=== PATIENT | female | born 1930 | race Caucasian/White ===

== ENCOUNTER 2016-04-18 11:32 | Emergency (ER) | payer BC ==
[~2016-04-18] VITALS: Ht 162.6 cm; Wt 61.8 kg
[~2016-04-18 11:32] MED LIST: BIOTIN; CLX20 PO; DRV100 PO; LRT5 PO; METO-157 PO; MULT-506 PO; TELM40TA11 PO; TEMA15CA4 PO
[2016-04-18 11:36] VITALS: TEMP 36.6; Ht 162.6 cm; Wt 61.8 kg
[2016-04-18] MEDS ORDERED: TELM40TA11 PO (12:00)
[2016-04-18] MEDS ORDERED: MECLIZINE HCL 25 MG TAB PO STA (12:10)
[2016-04-18] MEDS ORDERED: SODIUM CHLORIDE 0.9% 1000ML 1,000 ML IV STA (12:10)
[2016-04-18] MEDS ORDERED: SODIUM CHLORIDE 0.9% 1000ML 1,000 ML IV ONE (12:10)
--- NOTE | 2016-04-18 12:23 | EMERGENCY ROOM VISIT NOTE ---
History Report prepared by Bertha: Chencho Verma Under the Supervision of: Dr. Jesus Harrison M.D. First contact with patient: 12:01 Chief Complaint: ILLNESS Stated Complaint: SICK X 2 DAYS, DIZZINESS THIS AM, NAUSEA History of Present Illness The patient is an 86 year old female who presents to the Emergency Room with complaints of recurrent dizziness since yesterday morning. The patient woke up yesterday and felt as though the room was spinning. The dizziness was worse when she stood up. Today the patient feels fine until she moves which causes the dizziness to increase. The patient has also felt nauseated since yesterday. She vomited when she tried to drink orange juice. The patient also also been unable to take her Metformin secondary to vomiting. The patient did not check her BSG. The patient has experienced this dizziness before with vertigo. She notes that she has some right ear discomfort. She also has a small headache. She had not had any recent falls. The patient also expresses concern that both of her arms go numb at night which has been happening for approximately 4 months. The patient denies fevers, coughing, chest pain, shortness of breath, abdominal pain, black or bloody stools, diarrhea, new urinary symptoms, or trouble speaking or swallowing. The patient has a history of diabetes, neuropathy, and hypertension. She denies any history of stroke or heart disease. Source of History: patient, family Onset: yesterday morning Position: other (global) Quality: other (dizziness) Timing: other (recurrent) Modifying Factors (Worsening): movement Associated Symptoms: + headache, + nausea, + numbness, + vomiting, No SOB, No abdominal pain, No chest pain, No cough, No diarrhea, No fevers, No hematochezia, No melena, No urinary symptoms Review of Systems See HPI for pertinent positives & negatives. A total of 10 systems reviewed and were otherwise negative. Past Medical & Surgical Medical Problems: (1) Colon cancer (2) Diabetes (3) HTN (hypertension) (4) Neuropathy Surgical Problems: (1) History of hip replacement Old medical records were reviewed. Nurse's notes were reviewed and I agree with. Denies history of cardiac disease , CVA or pulmonary disease She does have diabetes Family History Diabetes mellitus FHx: cancer Hypertension Social History Smoking Status: Never Smoker Alcohol Use: none Drug Use: none Housing Status: lives alone Occupation Status: retired Current/Historical Medications Scheduled Cephalexin Monohydrate (Keflex), 500 MG PO TID Metformin Hcl Er (Glucophage Er), 500 MG PO DAILY Ondasetron Odt (Zofran Odt), 4 MG SL Q6H Sitagliptin (Januvia), 100 MG PO DAILY Telmisartan (Micardis), 20 MG PO DAILY Scheduled PRN Meclizine Hcl (Meclizine Hcl), 1 TAB PO TID PRN for Dizziness or Vertigo Temazepam (Restoril), 15 MG PO HS PRN for Sleep Tramadol (Ultram), 100 MG PO TID PRN for Pain Allergies Coded Allergies: Morphine (Unverified Allergy, Mild, 04/18/16) Physical Exam Vital Signs Date Time Temp Pulse Resp B/P Pulse Ox O2 Delivery O2 Flow Rate FiO2 04/18/16 14:51 80 20 140/72 99 04/18/16 13:25 59 20 144/70 94 Room Air 04/18/16 11:36 36.6 70 18 161/77 97 Room Air Physical Exam General: Non ill-appearing older female in no acute distress. Speaking and swallowing without difficulty. GCS 15. HEENT: Normal cephalic atraumatic. Pupils are equal round and reactive to light. Extraocular movements are intact. Oropharynx is pink with moist mucous membranes. No swelling of the mouth lips or tongue. Neck: Supple with a midline trachea. No meningeal signs or stiffness, no JVD or bruits. No Stridor. Chest: Clear to auscultation bilaterally. No wheezes or rhonchi. No increased work of breathing. Heart: regular rate and rhythm. Abdomen: Soft nontender, nondistended without rebound guarding or rigidity. Extremities: No cyanosis clubbing or edema. No calf tenderness or assymetry Spine/Back. Non tender to palpation. No CVA tenderness Skin: Good turgor without rashes. Neurologic exam: Cranial nerves two through 12 are intact. Motor and sensation are intact and symmetrical throughout. No pronator drift, finger nose intact, no tremor. Medical Decision & Procedures ER Provider Diagnostic Interpretation: Radiology results as stated below per my review and radiologist interpretation: SINGLE VIEW CHEST CLINICAL HISTORY: Atypical chest pain. FINDINGS: An AP, portable, upright chest radiograph is compared to study dated 12/16/2007. The examination is degraded by portable technique and patient rotation. The heart is enlarged and there is atherosclerotic calcification of the thoracic aorta. The pulmonary vasculature is noncongested. Chronic interstitial thickening is similar to previous. Linear atelectasis versus scarring is seen in the left lower lung. No airspace consolidation or large pleural effusion is identified. No pneumothorax is seen. The skeletal structures are osteopenic. The bony thorax is grossly intact. IMPRESSION: Mild cardiac enlargement with no acute cardiopulmonary abnormality. Electronically signed by: Lalo Loredo M.D. 04/18/2016 1:31 PM Dictated Date/Time: 04/18/2016 1:[address] SCAN OF THE BRAIN WITHOUT IV CONTRAST CLINICAL HISTORY: Dizziness. COMPARISON STUDY: CT of the brain dated 04/04/2007. TECHNIQUE: Unenhanced axial CT scan of the brain is performed from the vertex to the skull base. CT DOSE: 537.48 mGy.cm FINDINGS: Brain parenchyma: There are age-related involutional changes noting moderate confluent subcortical and periventricular microangiopathic change. There is no hemorrhage, mass effect, or evidence of acute territorial ischemia by CT criteria. Walsh-white matter is preserved. No extra-axial fluid collection is seen. Ventricles, sulci, cisterns: Prominent secondary to involutional change. Intracranial vasculature: There is atherosclerotic calcification of the cavernous carotid and vertebral arteries. Calvarium: Unremarkable. Sinuses and mastoids: The visualized paranasal sinuses are clear. The mastoid air cells are well pneumatized. Orbits: The bony orbits are grossly intact. There are bilateral ocular lens implants. IMPRESSION: Senescent changes as above with no hemorrhage, mass effect, or evidence of acute territorial ischemia by CT criteria. Electronically signed by: Lalo Loredo M.D. 04/18/2016 1:05 PM Dictated Date/Time: 04/18/2016 1:03 PM Laboratory Results 04/18/16 12:30 Red Blood Count 4.21, Mean Corpuscular Volume 95.5, Mean Corpuscular Hemoglobin 33.3, Mean Corpuscular Hemoglobin Concent 34.8, Mean Platelet Volume 10.3, Neutrophils (%) (Auto) 70.0, Lymphocytes (%) (Auto) 21.4, Monocytes (%) (Auto) 6.3, Eosinophils (%) (Auto) 1.3, Basophils (%) (Auto) 0.8, Neutrophils # (Auto) 4.47, Lymphocytes # (Auto) 1.36, Monocytes # (Auto) 0.40, Eosinophils # (Auto) 0.08, Basophils # (Auto) 0.05 04/18/16 12:30 Test 04/18/16 12:30 04/18/16 12:45 White Blood Count 6.37 K/uL (4.8-10.8) Red Blood Count 4.21 M/uL (4.2-5.4) Hemoglobin 14.0 g/dL (12.0-16.0) Hematocrit 40.2 % (37-47) Mean Corpuscular Volume 95.5 fL (80-100) Mean Corpuscular Hemoglobin 33.3 pg (25-34) Mean Corpuscular Hemoglobin Concent 34.8 g/dl (32-36) Platelet Count 206 K/uL (130-400) Mean Platelet Volume 10.3 fL (7.4-10.4) Neutrophils (%) (Auto) 70.0 % Lymphocytes (%) (Auto) 21.4 % Monocytes (%) (Auto) 6.3 % Eosinophils (%) (Auto) 1.3 % Basophils (%) (Auto) 0.8 % Neutrophils # (Auto) 4.47 K/uL (1.4-6.5) Lymphocytes # (Auto) 1.36 K/uL (1.2-3.4) Monocytes # (Auto) 0.40 K/uL (0.11-0.59) Eosinophils # (Auto) 0.08 K/uL (0-0.5) Basophils # (Auto) 0.05 K/uL (0-0.2) RDW Standard Deviation 43.6 fL (36.4-46.3) RDW Coefficient of Variation 12.6 % (11.5-14.5) Immature Granulocyte % (Auto) 0.2 % Immature Granulocyte # (Auto) 0.01 K/uL (0.00-0.02) Urine Color YELLOW Urine Appearance CLOUDY (CLEAR) Urine pH 5.0 (4.5-7.5) Urine Specific [place] 1.012 (1.000-1.030) Urine Protein NEG (NEG) Urine Glucose (UA) NEG (NEG) Urine Ketones NEG (NEG) Urine Occult Blood 1+ (NEG) Urine Nitrite POS (NEG) Urine Bilirubin NEG (NEG) Urine Urobilinogen NEG (NEG) Urine Leukocyte Esterase MODERATE (NEG) Urine WBC (Auto) >30 /hpf (0-5) Urine RBC (Auto) 0-4 /hpf (0-4) Urine Hyaline Casts (Auto) 10-30 /lpf (0-5) Urine Epithelial Cells (Auto) 5-10 /lpf (0-5) Urine Bacteria (Auto) 4+ (NEG) Anion Gap 12.0 mmol/L (3-11) Est Creatinine Clear Calc Drug Dose 39.1 ml/min Estimated GFR () 69.9 Estimated GFR (Non- 60.3 BUN/Creatinine Ratio 15.7 (10-20) Calcium Level 9.3 mg/dl (8.5-10.1) Total Bilirubin 0.9 mg/dl (0.2-1) Direct Bilirubin 0.2 mg/dl (0-0.2) Aspartate Amino Transf (AST/SGOT) 17 U/L (15-37) Alanine Aminotransferase (ALT/SGPT) 16 U/L (12-78) Alkaline Phosphatase 61 U/L (45-117) Total Creatine Kinase 124 U/L (26-192) Creatine Kinase MB 2.5 ng/ml (0.5-3.6) Creatine Kinase MB Ratio 2.0 (0-3.0) Total Protein 7.3 gm/dl (6.4-8.2) Albumin 3.8 gm/dl (3.4-5.0) Lipase 129 U/L (73-393) Bedside Troponin I 0.010 ng/ml (0-0.045) Laboratory studies as stated above per my review. Medications Administered Medications (Trade) Dose Ordered Sig/Saima Route Start Time Stop Time Status Last Admin Dose Admin Sodium Chloride (Nss 1000ml) 1,000 ml @ 999 mls/hr Q1H1M STAT IV 04/18/16 12:10 04/18/16 13:10 DC 04/18/16 12:10 999 MLS/HR Meclizine HCl (Antivert Tab) 25 mg NOW STAT PO 04/18/16 12:10 04/18/16 12:12 DC 04/18/16 12:49 25 MG Ondansetron HCl (Zofran Inj) 4 mg STK-MED ONCE .ROUTE 04/18/16 14:05 04/18/16 14:08 DC 04/18/16 14:05 4 MG Cephalexin Monohydrate (Keflex 500MG Home Pack) 1 homepack NOW ONCE PO 04/18/16 14:30 04/18/16 14:31 DC 04/18/16 14:41 1 HOMEPACK ECG Indication: other (dizziness) Rate (beats per minute): 82 Rhythm: normal sinus Findings: no acute ischemic change, other (LVH, repolarization abnormality) Comparison ECG Date: 2007 Change: no significant change ED Course 1202: Past medical records reviewed. The patient was evaluated in room B11b, and a complete history and physical examination were performed. 1210: Antivert 25 mg PO, NSS 1000 ml @ 150 mls/hr, NSS 1000 ml @ 999 mls/hr. 1315: Checked on the patient. She was resting comfortable and is feeling better. 1405: The patient is still feeling better. She will perform an ambulatory trial. 1415: Reassessed the patient. Discussed the discharge instructions with her. She verbalized understanding and agreement. The patient is ready for discharge. 1430: Keflex 500 mg PO home pack. Medical Decision Differential diagnosis includes vertigo, CVA, dehydration, arrhythmia, anemia, infection, electrolyte or metabolic abnormality. This patient comes in as described above. She has vertigo type symptoms they are positional. She has a normal neurologic exam and has a normal finger to nose. IV access was established and she was hydrated with IV normal saline she was given PO meclizine. EKG and multiple blood testing was obtained. She was reassessed frequently. She also had a CAT scan of her head. CAT scan of her head was normal as was her normal neurologic exam. She remained stable. She did receive IV hydration and meclizine and was feeling a lot better. She said her dizziness was better and she was given Zofran 4 mg IV for nausea. She looks well. EKG and cardiac biomarkers do not suggest acute coronary syndrome or arrhythmia. She has no acute electrolyte or metabolic abnormalities. She is not signifantly anemic. She has nothing to suggest sepsis. Her urinalysis does suggest a UTI with a backup culture pending. She was started on Keflex I gave her home pack as well as a prescription. For dizziness, she can use meclizine. And was warned that it could make her drowsy and be careful when getting up and down. For nauseas, she can use Zofran. Return if: worsening of symptoms, fever, numbness or weakness, any new problems or concerns. Follow-up with her doctor in 1-2 days for recheck. Impression Primary Impression: Dizziness Additional Impressions: Nausea UTI (urinary tract infection) Scribe Attestation The scribe's documentation has been prepared under my direction and personally reviewed by me in its entirety. I confirm that the note above accurately reflects all work, treatment, procedures, and medical decision making performed by me. Departure Information Dispostion Home / Self-Care Prescriptions Ondasetron Odt (ZOFRAN ODT) 4 Mg Tab 4 MG SL Q6H for Nausea, #10 TAB Prov: Jesus Harrison M.D. 04/18/16 Meclizine Hcl (MECLIZINE HCL) 25 Mg Tab 1 TAB PO TID Y for Dizziness or Vertigo for 10 Days, #10 TAB Prov: Jesus Harrison M.D. 04/18/16 Cephalexin Monohydrate (Keflex) 500 Mg Cap 500 MG PO TID, #21 CAP Prov: Jesus Harrison M.D. 04/18/16 Referrals Archie Chu M.D. (PCP) Forms HOME CARE DOCUMENTATION FORM, IMPORTANT VISIT INFORMATION Patient Instructions My [facility] Additional Instructions Rest Drink plenty of fluids Be extremely careful and getting up and down. Use Keflex 500 mg three times a day- antibiotic for 7 days For dizziness, may use meclizine 25 mg every 8 hours. Meclizine may make you drowsy and be careful after taking. May use Zofran 4 mg oral dissolving tablet every 6 hours as needed for nausea or vomiting. Return if: worsening of symptoms, numbness or weakness, chest pain, shortness of breath, fever chills, any new problems concerns. Follow-up with your doctor on Wednesday for recheck Problem Qualifiers
[2016-04-18 12:47] LABS: BASO % 0.8 %; BASO ABS # 0.05 K/uL (0-0.2); COMPLETE YES; EOS % 1.3 %; HEMATOCRIT 40.2 % (37-47); IG% 0.2 %; LYMPH % 21.4 %; LYMPH ABS # 1.36 K/uL (1.2-3.4); MEAN CELL VOLUME 95.5 fL (80-100); MEAN CORPUSCULAR HEMOGLOBIN 33.3 pg (25-34); MEAN CORPUSCULAR HGB CONC 34.8 g/dl (32-36); MEAN PLATELET VOLUME 10.3 fL (7.4-10.4); MONO % 6.3 %; PLATELET COUNT 206 K/uL (130-400); RED BLOOD COUNT 4.21 M/uL (4.2-5.4); WHITE BLOOD COUNT 6.37 K/uL (4.8-10.8)
[2016-04-18 12:52] LABS: URINE APPEARANCE CLOUDY (CLEAR); URINE BILIRUBIN NEG (NEG); URINE COLOR YELLOW; URINE NITRITE POS (NEG); URINE SPECIFIC GRAVITY 1.012 (1.000-1.030); UROBILINOGEN NEG (NEG)
[2016-04-18 13:00] LABS: MANUAL MICROSCOPIC REQUIRED? NO; REVIEW REQ? NO
--- NOTE | 2016-04-18 13:06 | DIAGNOSTIC IMAGING REPORT ---
CT SCAN OF THE BRAIN WITHOUT IV CONTRAST CLINICAL HISTORY: Dizziness. COMPARISON STUDY: CT of the brain dated 04/04/2007. TECHNIQUE: Unenhanced axial CT scan of the brain is performed from the vertex to the skull base. CT DOSE: 537.48 mGy.cm FINDINGS: Brain parenchyma: There are age-related involutional changes noting moderate confluent subcortical and periventricular microangiopathic change. There is no hemorrhage, mass effect, or evidence of acute territorial ischemia by CT criteria. Walsh-white matter is preserved. No extra-axial fluid collection is seen. Ventricles, sulci, cisterns: Prominent secondary to involutional change. Intracranial vasculature: There is atherosclerotic calcification of the cavernous carotid and vertebral arteries. Calvarium: Unremarkable. Sinuses and mastoids: The visualized paranasal sinuses are clear. The mastoid air cells are well pneumatized. Orbits: The bony orbits are grossly intact. There are bilateral ocular lens implants. IMPRESSION: Senescent changes as above with no hemorrhage, mass effect, or evidence of acute territorial ischemia by CT criteria. Electronically signed by: Lalo Loredo M.D. 04/18/2016 1:05 PM Dictated Date/Time: 04/18/2016 1:03 PM
[2016-04-18 13:10] LABS: BUN/CREATININE RATIO 15.7 (10-20); CALCIUM 9.3 mg/dl (8.5-10.1); CREATININE 0.86 mg/dl (0.60-1.20); POTASSIUM 3.8 mmol/L (3.5-5.1)
--- NOTE | 2016-04-18 13:32 | DIAGNOSTIC IMAGING REPORT ---
SINGLE VIEW CHEST CLINICAL HISTORY: Atypical chest pain. FINDINGS: An AP, portable, upright chest radiograph is compared to study dated 12/16/2007. The examination is degraded by portable technique and patient rotation. The heart is enlarged and there is atherosclerotic calcification of the thoracic aorta. The pulmonary vasculature is noncongested. Chronic interstitial thickening is similar to previous. Linear atelectasis versus scarring is seen in the left lower lung. No airspace consolidation or large pleural effusion is identified. No pneumothorax is seen. The skeletal structures are osteopenic. The bony thorax is grossly intact. IMPRESSION: Mild cardiac enlargement with no acute cardiopulmonary abnormality. Electronically signed by: Lalo Loredo M.D. 04/18/2016 1:31 PM Dictated Date/Time: 04/18/2016 1:29 PM
[2016-04-18] MEDS ORDERED: ONDANSETRON INJ 2 MG/ML 2 ML VIAL ONE (14:05)
[2016-04-18] MEDS ORDERED: CEPHALEXIN 500MG HOME PACK 1 EA BTL PO ONE (14:30)
[2016-04-18] MEDS ORDERED: CEPH500C PO (14:32)
[2016-04-18] MEDS ORDERED: MECL1TAB42 PO (14:32)
[2016-04-18] MEDS ORDERED: ONDA4TAB10 SL (14:32)
[2016-04-18 14:51] VITALS: BP 140/72; PULSE 80; O2SAT 99
--- NOTE | 2016-04-20 10:54 | Pharmacy Progress Note ---
ED Pharmacist Culture FollowUp Date of Service: Apr 20, 2016. Patient was sent home with a prescription for Keflex 500mg TID x 7 days, which should cover the Klebsiella pneumoniae growing from the patient's URINE culture. No action required.
[2016-11-03] MEDS ORDERED: SITA1TAB27 PO (12:00)
[2016-11-03] MEDS ORDERED: TEMA15CA4 PO (12:00)
[2016-11-03] MEDS ORDERED: METF500T5 PO (12:00)
[2016-11-03] MEDS ORDERED: TRAM-10 PO (12:00)
== END 2016-04-18 14:54 | disposition home or self-care (01) ==
LOC: C.EDB 11:34
DX: R42 Dizziness and giddiness (principal); R11.2 Nausea with vomiting, unspecified; N39.0 Urinary tract infection, site not specified; R51 Headache; R20.0 Anesthesia of skin; E11.9 Type 2 diabetes mellitus without complications; I10 Essential (primary) hypertension; Z79.84 Long term (current) use of oral hypoglycemic drugs; Z79.899 Other long term (current) drug therapy; Z88.5 Allergy status to narcotic agent; Z85.038 Personal history of other malignant neoplasm of large intestine; Z82.49 Family history of ischemic heart disease and other diseases of the circulatory system; Z83.3 Family history of diabetes mellitus

== ENCOUNTER → 2016-05-05 | Outpatient (CLI) | payer BC ==
[~2016-05-05] MED LIST changes: +ACET-1256 PO; -BIOTIN; +BISA-16 PO; +CEPH500C PO; +CHOL1000 PO; -CLX20 PO; +CPR250 PO; +DICL1GEL12 TOP; -DRV100 PO; +IMD/2 PO; +LEVO1TAB35 PO; -LRT5 PO; +METF500T5 PO; -METO-157 PO; +ONDA4TAB10 SL; +POLY335019 PO; +SITA1TAB27 PO; +TELM5TAB2 PO; +TRAM-10 PO
[2016-05-05 17:52] LABS: URINE APPEARANCE CLEAR (CLEAR); URINE BILIRUBIN NEG (NEG); URINE COLOR YELLOW; URINE EPITHELIAL CELL AUTO 0-5 /lpf (0-5); URINE NITRITE POS (NEG); URINE PH 5.5 (4.5-7.5); URINE SPECIFIC GRAVITY 1.009 (1.000-1.030); UROBILINOGEN NEG (NEG)
[2016-05-05 18:09] LABS: MANUAL MICROSCOPIC REQUIRED? NO; REVIEW REQ? NO
== END | disposition home or self-care (01) ==
LOC: C.LABBC 14:52
PROVIDERS: ATTEND Internal Medicine Geriatric Medicine
DX: N39.0 Urinary tract infection, site not specified (principal)

== ENCOUNTER → 2016-06-04 | Outpatient (CLI) | payer BC ==
[~2016-06-04] MED LIST changes: +CIPR250T5 PO; -CPR250 PO
[2016-06-04 17:06] LABS: BASO ABS # 0.07 K/uL (0-0.2); COMPLETE YES; EOS % 3.6 %; HEMATOCRIT 40.5 % (37-47); IG% 0.1 %; LYMPH % 32.5 %; LYMPH ABS # 2.19 K/uL (1.2-3.4); MEAN CELL VOLUME 96.2 fL (80-100); MEAN CORPUSCULAR HEMOGLOBIN 32.3 pg (25-34); MEAN CORPUSCULAR HGB CONC 33.6 g/dl (32-36); MEAN PLATELET VOLUME 10.4 fL (7.4-10.4); MONO % 7.7 %; NEUT % 55.1 %; PLATELET COUNT 219 K/uL (130-400); RED BLOOD COUNT 4.21 M/uL (4.2-5.4); WHITE BLOOD COUNT 6.73 K/uL (4.8-10.8)
[2016-06-04 17:09] LABS: URINE APPEARANCE TURBID (CLEAR); URINE BILIRUBIN NEG (NEG); URINE COLOR YELLOW; URINE EPITHELIAL CELL AUTO 20-30 /lpf (0-5); URINE NITRITE NEG (NEG); URINE SPECIFIC GRAVITY 1.016 (1.000-1.030); UROBILINOGEN NEG (NEG)
[2016-06-04 17:10] LABS: MANUAL MICROSCOPIC REQUIRED? NO; REVIEW REQ? NO
[2016-06-04 17:25] LABS: ALT/SGPT 19 U/L (12-78); BLOOD UREA NITROGEN 18 mg/dl (7-18); BUN/CREATININE RATIO 18.4 (10-20); CARBON DIOXIDE 26 mmol/L (21-32); CHLORIDE 103 mmol/L (98-107); CREATININE 0.97 mg/dl (0.60-1.20); GLUCOSE 170 mg/dl (70-99); SODIUM 137 mmol/L (136-145)
[2016-06-04 17:36] LABS: ALB/GLOB RATIO 1.2 (0.9-2); ALKALINE PHOSPHATASE 63 U/L (45-117); AST/SGOT 18 U/L (15-37)
[2016-06-04 18:04] LABS: CALCIUM 9.6 mg/dl (8.5-10.1)
[2016-06-05 06:13] LABS: ESTIMATED AVERAGE GLUCOSE 151 mg/dl; HA1C FLAG Normal (Normal)
--- NOTE | 2016-06-09 13:02 | CODING QUERY MEDICAL NECESSITY ---
SUPPORTING DIAGNOSIS NEEDED A supporting diagnosis is required for the test/procedure performed on this patient in order for us to be reimbursed by the patient's insurance. Please provide a supporting diagnosis for the following test/procedure listed below next to the test name along with your signature. *If there is no additional diagnosis for this patient that would support the following test/procedure please document that below next to the test/procedure. Test(s)/Procedure(s) that require a supporting diagnosis: DOS 06/04 * Hba1c DIAGNOSIS: * TSH DIAGNOSIS: Provider Signature: Date: Thank you Tatiana Vázquez Health Information Management Once completed, please kindly fax back to [phone] For questions please call [phone]
== END | disposition home or self-care (01) ==
LOC: C.LABBC 13:51
PROVIDERS: ATTEND Physician Assistant Medical
DX: N39.0 Urinary tract infection, site not specified (principal); E55.9 Vitamin D deficiency, unspecified; E11.9 Type 2 diabetes mellitus without complications; I10 Essential (primary) hypertension

== ENCOUNTER → 2016-06-25 | Outpatient (CLI) | payer BC | END | disposition home or self-care (01) | LOC: C.LABBC 11:40 | PROVIDERS: ATTEND Physician Assistant Medical | DX: N39.0 Urinary tract infection, site not specified (principal) ==

== ENCOUNTER 2016-08-02 21:47 | Inpatient (IN) | payer BC, OTHER ==
[~2016-08-02] VITALS: Ht 165.1 cm; Wt 63.4 kg
[~2016-08-02 21:47] MED LIST changes: -ACET-1256 PO; -BISA-16 PO; -CHOL1000 PO; -CIPR250T5 PO; -DICL1GEL12 TOP; -IMD/2 PO; -LEVO1TAB35 PO; -METF500T5 PO; -MULT-506 PO; -POLY335019 PO; -SITA1TAB27 PO; -TELM5TAB2 PO; -TEMA15CA4 PO; -TRAM-10 PO
[2016-08-02] MEDS ORDERED: ONDANSETRON INJ 2 MG/ML 2 ML VIAL IV STA (22:01)
[2016-08-02] MEDS ORDERED: SODIUM CHLORIDE 0.9% 500ML 500 ML IV STA (22:03)
[2016-08-02 22:07] LABS: BASO % 0.3 %; BASO ABS # 0.02 K/uL (0-0.2); COMPLETE YES; EOS % 0.1 %; HEMATOCRIT 39.2 % (37-47); IG% 0.1 %; LYMPH % 11.8 %; MEAN CELL VOLUME 93.6 fL (80-100); MEAN CORPUSCULAR HEMOGLOBIN 31.7 pg (25-34); MEAN CORPUSCULAR HGB CONC 33.9 g/dl (32-36); MEAN PLATELET VOLUME 10.2 fL (7.4-10.4); MONO % 3.5 %; NEUT % 84.2 %; PLATELET COUNT 223 K/uL (130-400); RED BLOOD COUNT 4.19 M/uL (4.2-5.4); WHITE BLOOD COUNT 6.79 K/uL (4.8-10.8)
--- NOTE | 2016-08-02 22:12 | EMERGENCY ROOM VISIT NOTE ---
History Report prepared by Bertha: Chencho Verma Under the Supervision of: Dr. Aravind Cruz D.O. First contact with patient: 21:54 Chief Complaint: WEAKNESS Stated Complaint: VOMITING WEAKNESS, LETHARGIC History of Present Illness The patient is an 86 year old female who presents to the Emergency Room with complaints of persistent nausea since this morning. She has been vomiting all day as well. The patient denies abdominal pain, but states that "something does not feel right down there." Her abdomen does not feel distended. The patient called an ambulance because she was feeling nauseous and also a little confused. She lives alone at home. The patient denies headache, chest pain, or shortness of breath. She does not urinary frequency. She denies recent falls and has not hit her head. She has a history of colon cancer, diabetes, and rheumatism. The patient is s/p cholecystectomy. She follows up with Dr. Chu (Family Medicine). Source of History: patient Onset: this morning Position: other (GI) Quality: other (nausea) Timing: other (persistent) Associated Symptoms: + vomiting, No headache, No chest pain, No SOB Review of Systems See HPI for pertinent positives & negatives. A total of 10 systems reviewed and were otherwise negative. Past Medical & Surgical Medical Problems: (1) Colon cancer (2) Diabetes (3) HTN (hypertension) (4) Neuropathy Surgical Problems: (1) History of hip replacement Family History Diabetes mellitus FHx: cancer Hypertension Social History Smoking Status: Never Smoker Alcohol Use: none Drug Use: none Housing Status: lives alone Occupation Status: retired Current/Historical Medications Scheduled Cholecalciferol (Vitamin D3), 1,000 INTER.UNIT PO DAILY Metformin Hcl Er (Glucophage Er), 500 MG PO DAILY Multivitamin (Multivitamin), 1 TAB PO DAILY Sitagliptin (Januvia), 100 MG PO DAILY Telmisartan (Micardis), 20 MG PO DAILY Scheduled PRN Temazepam (Restoril), 15 MG PO HS PRN for Sleep Tramadol (Ultram), 100 MG PO TID PRN for Pain Allergies Coded Allergies: Morphine (Unverified Allergy, Mild, 08/02/16) Physical Exam Vital Signs Date Time Temp Pulse Resp B/P (MAP) Pulse Ox O2 Delivery O2 Flow Rate FiO2 08/02/16 23:10 64 18 148/65 98 Room Air 08/02/16 22:39 65 16 138/74 98 Room Air 08/02/16 22:00 36.7 64 18 169/72 94 Room Air 08/02/16 21:59 68 Physical Exam GENERAL: Patient is awake, somewhat listless appearing, does not appear to be in pain. EYES: The conjunctivae are clear. The pupils are round and reactive. EARS, NOSE, MOUTH AND THROAT: The nose is without any evidence of any deformity. Mucous membranes are dry, tongue is midline NECK: The neck is nontender and supple. RESPIRATORY: Normal respiratory effort is noted there is no evidence of wheezing rhonchi or rales CARDIOVASCULAR: Regular rate and rhythm noted, there was a systolic murmur appreciated. GASTROINTESTINAL: The abdomen is mildly distended but soft, mild diffuse tenderness to palpation noted, no guarding or rigidity. MUSCULOSKELETAL/EXTREMITIES: There is no evidence of gross deformity full range of motion is noted in the hips and shoulders SKIN: Pedal edema bilaterally. NEUROLOGIC: Patient is awake alert and oriented x3 strength is symmetric. Medical Decision & Procedures ER Provider Diagnostic Interpretation: X-ray results as stated below per interpretation by me and the radiologist. Radiology results as stated below per my review and radiologist interpretation: ABDOMEN AND PELVIS CT WITHOUT CONTRAST CT DOSE: 262.73 mGy.cm HISTORY: vomiting TECHNIQUE: Multiaxial CT images of the abdomen and pelvis were performed without contrast. COMPARISON STUDY: Abdomen and pelvis CT 04/04/2007. FINDINGS: Bibasilar linear densities consistent with subsegmental atelectasis or scarring. No pneumoperitoneum. No pneumatosis. Left total hip arthroplasty. Cholecystectomy. The unenhanced liver, spleen, pancreas, and adrenal glands are unremarkable. No renal stones or hydronephrosis. The right renal hypodense lesions are again noted. These are incompletely characterize on this noncontrast study but favor cysts. Dominant region measures 3.9 cm. These have slightly increased in size. No retroperitoneal lymphadenopathy. Small fat-containing bilateral inguinal hernias. The bladder appears unremarkable. Hysterectomy. Prior rectosigmoid anastomosis. Suboptimal evaluation for bowel pathology due to the lack of intravenous and oral contrast. However, there is no definite bowel wall thickening or obstruction. Right-sided colonic diverticula. IMPRESSION: 1. No definite bowel wall thickening or obstruction. 2. Right-sided colonic diverticulosis. 3. Postoperative changes as described above. Electronically signed by: Merritt Scherer M.D. 08/02/2016 10:43 PM Dictated Date/Time: 08/02/2016 10:[address] NON[address]AST CT DOSE: 537.48 mGy.cm HISTORY: Altered mental status. TECHNIQUE: Multiaxial CT images of the head were performed without the use of intravenous contrast. Automated exposure control was utilized for this study. Comparison: None. Findings: The paranasal sinuses and mastoid air cells are clear. The calvarium and skull base are intact. There is no mass, hematoma, midline shift, acute infarct. White matter hypodensity is nonspecific but suggestive of advanced microvascular ischemic change. The ventricles and sulci are within normal limits. Impression: No significant change compared to the prior study. No acute intracranial abnormality. Electronically signed by: Merritt Scherer M.D. 08/02/2016 10:45 PM Dictated Date/Time: 08/02/2016 10:43 PM CHEST ONE VIEW PORTABLE HISTORY: Vomiting. Weakness. Generalized abdominal pain. COMPARISON: Chest 04/18/2016. FINDINGS: The heart remains borderline enlarged. Left basilar linear densities suggesting subsegmental atelectasis or scarring. No new focal lung consolidations to suggest pneumonia. No evidence for pulmonary edema. No pleural effusions. No pneumothorax. IMPRESSION: No significant change compared to the prior study. No acute process. Electronically signed by: Merritt Scherer M.D. 08/02/2016 10:47 PM Dictated Date/Time: 08/02/2016 10:45 PM Laboratory Results 08/02/16 21:50 Red Blood Count 4.19, Mean Corpuscular Volume 93.6, Mean Corpuscular Hemoglobin 31.7, Mean Corpuscular Hemoglobin Concent 33.9, Mean Platelet Volume 10.2, Neutrophils (%) (Auto) 84.2, Lymphocytes (%) (Auto) 11.8, Monocytes (%) (Auto) 3.5, Eosinophils (%) (Auto) 0.1, Basophils (%) (Auto) 0.3, Neutrophils # (Auto) 5.71, Lymphocytes # (Auto) 0.80, Monocytes # (Auto) 0.24, Eosinophils # (Auto) 0.01, Basophils # (Auto) 0.02 08/02/16 21:50 Test 08/02/16 21:50 08/02/16 21:58 08/02/16 22:18 08/02/16 23:08 White Blood Count 6.79 K/uL (4.8-10.8) Red Blood Count 4.19 M/uL (4.2-5.4) Hemoglobin 13.3 g/dL (12.0-16.0) Hematocrit 39.2 % (37-47) Mean Corpuscular Volume 93.6 fL (80-100) Mean Corpuscular Hemoglobin 31.7 pg (25-34) Mean Corpuscular Hemoglobin Concent 33.9 g/dl (32-36) Platelet Count 223 K/uL (130-400) Mean Platelet Volume 10.2 fL (7.4-10.4) Neutrophils (%) (Auto) 84.2 % Lymphocytes (%) (Auto) 11.8 % Monocytes (%) (Auto) 3.5 % Eosinophils (%) (Auto) 0.1 % Basophils (%) (Auto) 0.3 % Neutrophils # (Auto) 5.71 K/uL (1.4-6.5) Lymphocytes # (Auto) 0.80 K/uL (1.2-3.4) Monocytes # (Auto) 0.24 K/uL (0.11-0.59) Eosinophils # (Auto) 0.01 K/uL (0-0.5) Basophils # (Auto) 0.02 K/uL (0-0.2) RDW Standard Deviation 42.2 fL (36.4-46.3) RDW Coefficient of Variation 12.5 % (11.5-14.5) Immature Granulocyte % (Auto) 0.1 % Immature Granulocyte # (Auto) 0.01 K/uL (0.00-0.02) Anion Gap 12.0 mmol/L (3-11) Estimated GFR () 75.2 Estimated GFR (Non- 64.8 BUN/Creatinine Ratio 14.9 (10-20) Calcium Level 9.4 mg/dl (8.5-10.1) Total Bilirubin 0.9 mg/dl (0.2-1) Direct Bilirubin 0.2 mg/dl (0-0.2) Aspartate Amino Transf (AST/SGOT) 16 U/L (15-37) Alanine Aminotransferase (ALT/SGPT) 17 U/L (12-78) Alkaline Phosphatase 62 U/L (45-117) Total Creatine Kinase 87 U/L (26-192) Creatine Kinase MB 1.9 ng/ml (0.5-3.6) Creatine Kinase MB Ratio 2.2 (0-3.0) Troponin I < 0.015 ng/ml (0-0.045) Total Protein 7.5 gm/dl (6.4-8.2) Albumin 3.9 gm/dl (3.4-5.0) Lipase 97 U/L (73-393) Bedside Glucose 211 mg/dl (70-90) Prothrombin Time 11.0 SECONDS (9.0-12.0) Prothromb Time International Ratio 1.0 (0.9-1.1) Activated Partial Thromboplast Time 26.1 SECONDS (21.0-31.0) Partial Thromboplastin Ratio 1.0 Urine Color YELLOW Urine Appearance CLOUDY (CLEAR) Urine pH 8.0 (4.5-7.5) Urine Specific [place] 1.016 (1.000-1.030) Urine Protein NEG (NEG) Urine Glucose (UA) 1+ (NEG) Urine Ketones 2+ (NEG) Urine Occult Blood NEG (NEG) Urine Nitrite NEG (NEG) Urine Bilirubin NEG (NEG) Urine Urobilinogen NEG (NEG) Urine Leukocyte Esterase LARGE (NEG) Urine WBC (Auto) >30 /hpf (0-5) Urine RBC (Auto) 0-4 /hpf (0-4) Urine Hyaline Casts (Auto) 5-10 /lpf (0-5) Urine Epithelial Cells (Auto) 0-5 /lpf (0-5) Urine Bacteria (Auto) 1+ (NEG) Laboratory results per my review. Medications Administered Medications (Trade) Dose Ordered Sig/Saima Route Start Time Stop Time Status Last Admin Dose Admin Ondansetron HCl (Zofran Inj) 4 mg NOW STAT IV 08/02/16 22:01 08/02/16 22:03 DC 08/02/16 22:01 4 MG Sodium Chloride 500 ml @ 999 mls/hr Q31M STAT IV 08/02/16 22:03 08/02/16 22:33 DC 08/02/16 22:03 999 MLS/HR Levofloxacin (Levaquin / D5W) 750 mg NOW STAT IV 08/02/16 23:39 6/18/17 23:40 DC 08/02/16 23:45 750 MG ECG Indication: vomiting Rate (beats per minute): 67 Rhythm: normal sinus Findings: ST depression (inferior and lateral), no ectopy Comparison ECG Date: 18 April 2016 Change: no significant change ED Course 2199: The patient was evaluated in room A9b. A complete history and physical examination were performed. 2200: Zofran 4 mg IV. 2202: NSS 500 ml @ 999 mls/hr. 2238: Levofloxacin 750 mg IV. 5: Discussed the case with TORREY Waggoner Hospitalist. The patient will be evaluated. Medical Decision Prior records/ancillary studies reviewed. Triage Nursing notes reviewed. The patient's history was concerning for nausea, vomiting, diarrhea, and abdominal pain. Differential diagnosis: Etiologies such as gastroenteritis, food borne illness, infections, appendicitis , diverticulitis, inflammatory bowel disease, obstruction, GI bleed, biliary pathology, as well as others were entertained. Medication Reconciliation: I attest that I have personally reviewed the patient' s current medications list. Patient was found to have a slightly elevated blood pressure due to circumstances. I do not believe that the patient requires hypertension monitoring. The patient is an 86-year-old female who presented to the emergency department for an evaluation of nausea and vomiting which has been going on throughout the day. The patient has a history of diabetes and has not been taking her medications because she was not able to eat throughout the entire day. She was treated with IV fluids IV antiemetics. The patient's urinalysis revealed signs of urinary tract infection. This was a cath specimen. I reviewed the patient's recent urine cultures and over the last 3 urine cultures she has had 2 different bacteria both of which have been sensitive to quinolones. This reason the patient was started on Levaquin. I discussed the patient's laboratory radiographic studies with her. [facility] They've agreed to evaluate the patient in the emergency department for further management and disposition. Consults Time Called: [phone] Consulting Physician: TORREY Waggoner Hospitalist Returned Call: [phone] The patient will be evaluated. Impression Primary Impression: Nausea & vomiting Additional Impressions: UTI (urinary tract infection) Dehydration Scribe Attestation The scribe's documentation has been prepared under my direction and personally reviewed by me in its entirety. I confirm that the note above accurately reflects all work, treatment, procedures, and medical decision making performed by me. Departure Information Dispostion Being Evaluated By Hospitalist Archie Delgadillo M.D. (PCP) Patient Instructions My [facility] Problem Qualifiers Primary Impression: Nausea & vomiting Vomiting type: unspecified Vomiting Intractability: non-intractable Qualified Codes: R11.2 - Nausea with vomiting, unspecified Additional Impressions: UTI (urinary tract infection) Urinary tract infection type: site unspecified Hematuria presence: without hematuria Qualified Codes: N39.0 - Urinary tract infection, site not specified
[2016-08-02 22:25] LABS: ALT/SGPT 17 U/L (12-78); BLOOD UREA NITROGEN 12 mg/dl (7-18); BUN/CREATININE RATIO 14.9 (10-20); CARBON DIOXIDE 26 mmol/L (21-32); CHLORIDE 99 mmol/L (98-107); CREATININE 0.81 mg/dl (0.60-1.20); GLUCOSE 207 mg/dl (70-99); POTASSIUM 3.8 mmol/L (3.5-5.1); SODIUM 137 mmol/L (136-145)
[2016-08-02 22:31] LABS: ALKALINE PHOSPHATASE 62 U/L (45-117); AST/SGOT 16 U/L (15-37); CKMB/CK RATIO 2.2 (0-3.0)
[2016-08-02 22:33] LABS: CALCIUM 9.4 mg/dl (8.5-10.1)
--- NOTE | 2016-08-02 22:44 | DIAGNOSTIC IMAGING REPORT ---
ABDOMEN AND PELVIS CT WITHOUT CONTRAST CT DOSE: 262.73 mGy.cm HISTORY: vomiting TECHNIQUE: Multiaxial CT images of the abdomen and pelvis were performed without contrast. COMPARISON STUDY: Abdomen and pelvis CT 04/04/2007. FINDINGS: Bibasilar linear densities consistent with subsegmental atelectasis or scarring. No pneumoperitoneum. No pneumatosis. Left total hip arthroplasty. Cholecystectomy. The unenhanced liver, spleen, pancreas, and adrenal glands are unremarkable. No renal stones or hydronephrosis. The right renal hypodense lesions are again noted. These are incompletely characterize on this noncontrast study but favor cysts. Dominant region measures 3.9 cm. These have slightly increased in size. No retroperitoneal lymphadenopathy. Small fat-containing bilateral inguinal hernias. The bladder appears unremarkable. Hysterectomy. Prior rectosigmoid anastomosis. Suboptimal evaluation for bowel pathology due to the lack of intravenous and oral contrast. However, there is no definite bowel wall thickening or obstruction. Right-sided colonic diverticula. IMPRESSION: 1. No definite bowel wall thickening or obstruction. 2. Right-sided colonic diverticulosis. 3. Postoperative changes as described above. Electronically signed by: Merritt Scherer M.D. 08/02/2016 10:43 PM Dictated Date/Time: 08/02/2016 10:35 PM
--- NOTE | 2016-08-02 22:46 | DIAGNOSTIC IMAGING REPORT ---
HEAD CT NONCONTRAST CT DOSE: 537.48 mGy.cm HISTORY: Altered mental status. TECHNIQUE: Multiaxial CT images of the head were performed without the use of intravenous contrast. Automated exposure control was utilized for this study. Comparison: None. Findings: The paranasal sinuses and mastoid air cells are clear. The calvarium and skull base are intact. There is no mass, hematoma, midline shift, acute infarct. White matter hypodensity is nonspecific but suggestive of advanced microvascular ischemic change. The ventricles and sulci are within normal limits. Impression: No significant change compared to the prior study. No acute intracranial abnormality. Electronically signed by: Merritt Scherer M.D. 08/02/2016 10:45 PM Dictated Date/Time: 08/02/2016 10:43 PM
--- NOTE | 2016-08-02 22:48 | DIAGNOSTIC IMAGING REPORT ---
CHEST ONE VIEW PORTABLE HISTORY: Vomiting. Weakness. Generalized abdominal pain. COMPARISON: Chest 04/18/2016. FINDINGS: The heart remains borderline enlarged. Left basilar linear densities suggesting subsegmental atelectasis or scarring. No new focal lung consolidations to suggest pneumonia. No evidence for pulmonary edema. No pleural effusions. No pneumothorax. IMPRESSION: No significant change compared to the prior study. No acute process. Electronically signed by: Merritt Scherer M.D. 08/02/2016 10:47 PM Dictated Date/Time: 08/02/2016 10:45 PM
[2016-08-02 23:26] LABS: URINE APPEARANCE CLOUDY (CLEAR); URINE BILIRUBIN NEG (NEG); URINE COLOR YELLOW; URINE EPITHELIAL CELL AUTO 0-5 /lpf (0-5); URINE NITRITE NEG (NEG); URINE SPECIFIC GRAVITY 1.016 (1.000-1.030); UROBILINOGEN NEG (NEG); ZZURINE CULT IF INDIC CATH YES
[2016-08-02 23:37] LABS: MANUAL MICROSCOPIC REQUIRED? NO; REVIEW REQ? NO; SULFASALICYLIC ACID NEG (NEG)
[2016-08-02] MEDS ORDERED: LEVAQUIN 750MG / 150ML D5W IV STA (23:39)
[2016-08-03] MEDS ORDERED: POLYETHYLENE (MIRALAX) 17 GM PACK PO PRN (00:45)
[2016-08-03] MEDS ORDERED: ONDANSETRON INJ 2 MG/ML 2 ML VIAL IV PRN (00:45)
[2016-08-03] MEDS ORDERED: MAGNESIUM HYDROXIDE SUSP 30 ML UDC PO PRN (00:45)
[2016-08-03] MEDS ORDERED: TRAMADOL HCL 50 MG TAB PO PRN (00:45)
[2016-08-03] MEDS ORDERED: ALUMINUM/MAGNESIUM/SIMETH (MAALOX MAX) 30 ML UDC PO PRN (00:45)
[2016-08-03] MEDS ORDERED: ACETAMINOPHEN 325 MG TAB PO PRN (00:45)
--- NOTE | 2016-08-03 00:46 | History and Physical ---
History & Physical Date & Time of Service: Aug 03, 2016 at 00:39 Chief Complaint: Vomiting Weakness, Lethargic Primary Care Physician: Archie Chu M.D. History of Present Illness Patient presents to the ED with 1 day of vomiting. She also states "my mind doesn't feel that clear". This morning, vomited at breakfast. Went to [facility] walkin with right red eye. Givne drops but did not take as she was having nausea as soon as she got home. Vomited 5 times. No Blood. No abdo pain, No diarrhea, constpiation. Has chronic urinary frequency. No dysuria. Does not low grade 5/10 ache in the suprapubic area. Cannot elaborate on alleviating or exacerbating factors. No radiation of pain. No back pain. No fevers, chills or sweats. Appetite has been fair. Patient notes that she was otherwise in her usual state of health until this morning. Treated in the ED with a dose of Levaquin and 1 L NSS and 1 dose of Zofran. Past Medical/Surgical History Medical Problems: (1) Colon cancer Status: Resolved (2) Diabetes Status: Chronic (3) HTN (hypertension) Status: Chronic (4) Neuropathy Status: Chronic Surgical Problems: (1) History of hip replacement Status: Resolved Family History Diabetes mellitus FHx: cancer Hypertension Social History Smoking Status: Never Smoker Smokeless Tobacco Use: No Alcohol Use: none Drug Use: none Marital Status: single Housing status: lives alone Occupational Status: retired Multi-Drug Resistant Organisms History of MDRO: No Allergies Coded Allergies: Morphine (Unverified Allergy, Mild, 08/02/16) Home Medications Scheduled Cholecalciferol (Vitamin D3), 1,000 INTER.UNIT PO DAILY Levofloxacin (Levaquin), 750 MG PO Q2D Metformin Hcl Er (Glucophage Er), 500 MG PO DAILY Multivitamin (Multivitamin), 1 TAB PO DAILY Sitagliptin (Januvia), 100 MG PO DAILY Telmisartan (Micardis), 20 MG PO DAILY Scheduled PRN Temazepam (Restoril), 15 MG PO HS PRN for Sleep Tramadol (Ultram), 100 MG PO TID PRN for Pain Review of Systems A 10 point review of systems was negative unless stated above. Physical Exam Vital Signs Date Time Temp Pulse Resp B/P (MAP) Pulse Ox O2 Delivery O2 Flow Rate FiO2 08/03/16 00:20 66 18 132/79 96 Room Air 08/02/16 23:10 64 18 148/65 98 Room Air 08/02/16 22:39 65 16 138/74 98 Room Air 08/02/16 22:00 36.7 64 18 169/72 94 Room Air 08/02/16 21:59 68 General Appearance: WD/WN, no apparent distress Head: normocephalic, atraumatic Eyes: normal inspection, EOMI, + pertinent finding (red sclera in left eye) ENT: hearing grossly normal, pharynx normal Neck: supple, no adenopathy, no JVD Respiratory/Chest: lungs clear, no respiratory distress Cardiovascular: regular rate, rhythm, no gallop, no murmur Abdomen/GI: normal bowel sounds, soft, + pertinent finding (suprapubic tenderness) Back: no CVA tenderness, no muscle spasm Extremities/Musculoskelatal: no calf tenderness, no pedal edema Neurologic/Psych: alert, normal mood/affect, oriented x 3 Lymphatic: no adenopathy Diagnostics Laboratory Results Results Past 24 Hours Test 08/02/16 21:50 08/02/16 21:58 08/02/16 22:18 08/02/16 23:08 Range/Units White Blood Count 6.79 4.8-10.8 K/uL Red Blood Count 4.19 4.2-5.4 M/uL Hemoglobin 13.3 12.0-16.0 g/dL Hematocrit 39.2 37-47 % Mean Corpuscular Volume 93.6 80-100 fL Mean Corpuscular Hemoglobin 31.7 25-34 pg Mean Corpuscular Hemoglobin Concent 33.9 32-36 g/dl Platelet Count 223 130-400 K/uL Mean Platelet Volume 10.2 7.4-10.4 fL Neutrophils (%) (Auto) 84.2 % Lymphocytes (%) (Auto) 11.8 % Monocytes (%) (Auto) 3.5 % Eosinophils (%) (Auto) 0.1 % Basophils (%) (Auto) 0.3 % Neutrophils # (Auto) 5.71 1.4-6.5 K/uL Lymphocytes # (Auto) 0.80 1.2-3.4 K/uL Monocytes # (Auto) 0.24 0.11-0.59 K/uL Eosinophils # (Auto) 0.01 0-0.5 K/uL Basophils # (Auto) 0.02 0-0.2 K/uL RDW Standard Deviation 42.2 36.4-46.3 fL RDW Coefficient of Variation 12.5 11.5-14.5 % Immature Granulocyte % (Auto) 0.1 % Immature Granulocyte # (Auto) 0.01 0.00-0.02 K/uL Sodium Level 137 136-145 mmol/L Potassium Level 3.8 3.5-5.1 mmol/L Chloride Level 99 98-107 mmol/L Carbon Dioxide Level 26 21-32 mmol/L Anion Gap 12.0 3-11 mmol/L Blood Urea Nitrogen 12 7-18 mg/dl Creatinine 0.81 0.60-1.20 mg/dl Estimated GFR () 75.2 Estimated GFR (Non- 64.8 BUN/Creatinine Ratio 14.9 10-20 Random Glucose 207 70-99 mg/dl Calcium Level 9.4 8.5-10.1 mg/dl Total Bilirubin 0.9 0.2-1 mg/dl Direct Bilirubin 0.2 0-0.2 mg/dl Aspartate Amino Transf (AST/SGOT) 16 15-37 U/L Alanine Aminotransferase (ALT/SGPT) 17 12-78 U/L Alkaline Phosphatase 62 45-117 U/L Total Creatine Kinase 87 26-192 U/L Creatine Kinase MB 1.9 0.5-3.6 ng/ml Creatine Kinase MB Ratio 2.2 0-3.0 Troponin I < 0.015 0-0.045 ng/ml Total Protein 7.5 6.4-8.2 gm/dl Albumin 3.9 3.4-5.0 gm/dl Lipase 97 73-393 U/L Bedside Glucose 211 70-90 mg/dl Prothrombin Time 11.0 9.0-12.0 SECONDS Prothromb Time International Ratio 1.0 0.9-1.1 Activated Partial Thromboplast Time 26.1 21.0-31.0 SECONDS Partial Thromboplastin Ratio 1.0 Urine Color YELLOW Urine Appearance CLOUDY CLEAR Urine pH 8.0 4.5-7.5 Urine Specific [place] 1.016 1.000-1.030 Urine Protein NEG NEG Urine Glucose (UA) 1+ NEG Urine Ketones 2+ NEG Urine Occult Blood NEG NEG Urine Nitrite NEG NEG Urine Bilirubin NEG NEG Urine Urobilinogen NEG NEG Urine Leukocyte Esterase LARGE NEG Urine WBC (Auto) >30 0-5 /hpf Urine RBC (Auto) 0-4 0-4 /hpf Urine Hyaline Casts (Auto) 5-10 0-5 /lpf Urine Epithelial Cells (Auto) 0-5 0-5 /lpf Urine Bacteria (Auto) 1+ NEG Microbiology Results 08/02/16 Urine Culture, Received Pending Diagnostic Radiology [~ rep ct add3]] ABDOMEN AND PELVIS CT WITHOUT CONTRAST CT DOSE: 262.73 mGy.cm HISTORY: vomiting TECHNIQUE: Multiaxial CT images of the abdomen and pelvis were performed without contrast. COMPARISON STUDY: Abdomen and pelvis CT 04/04/2007. FINDINGS: Bibasilar linear densities consistent with subsegmental atelectasis or scarring. No pneumoperitoneum. No pneumatosis. Left total hip arthroplasty. Cholecystectomy. The unenhanced liver, spleen, pancreas, and adrenal glands are unremarkable. No renal stones or hydronephrosis. The right renal hypodense lesions are again noted. These are incompletely characterize on this noncontrast study but favor cysts. Dominant region measures 3.9 cm. These have slightly increased in size. No retroperitoneal lymphadenopathy. Small fat-containing bilateral inguinal hernias. The bladder appears unremarkable. Hysterectomy. Prior rectosigmoid anastomosis. Suboptimal evaluation for bowel pathology due to the lack of intravenous and oral contrast. However, there is no definite bowel wall thickening or obstruction. Right-sided colonic diverticula. IMPRESSION: 1. No definite bowel wall thickening or obstruction. 2. Right-sided colonic diverticulosis. 3. Postoperative changes as described above. Electronically signed by: Merritt Scherer M.D. 08/02/2016 10:43 PM Dictated Date/Time: 08/02/2016 10:35 PM The status of this report is Signed. Draft = Not yet reviewed or approved by Radiologist. Signed = Reviewed and approved by Radiologist. HEAD CT NONCONTRAST CT DOSE: 537.48 mGy.cm HISTORY: Altered mental status. TECHNIQUE: Multiaxial CT images of the head were performed without the use of intravenous contrast. Automated exposure control was utilized for this study. Comparison: None. Findings: The paranasal sinuses and mastoid air cells are clear. The calvarium and skull base are intact. There is no mass, hematoma, midline shift, acute infarct. White matter hypodensity is nonspecific but suggestive of advanced microvascular ischemic change. The ventricles and sulci are within normal limits. Impression: No significant change compared to the prior study. No acute intracranial abnormality. Electronically signed by: Merritt Scherer M.D. 08/02/2016 10:45 PM Dictated Date/Time: 08/02/2016 10:43 PM Impression Assessment and Plan (1) UTI (urinary tract infection) (2) Right conjunctivitis (3) Nausea & vomiting (4) HTN (hypertension) (5) Type 2 diabetes mellitus (6) Chronic back pain (7) History of colon cancer (8) Sleeping difficulties UTI - Levaquin given in ED - Previous culture date reviewed; Enterococcus, pansensitive 06/06; Klebsiella, pansensitive on 05/07 and 04/20 - Start Rocephin 1 g daily - Urine culture pending Nausea/Vomiting - Zofran PRN - IV hydration with NSS + 20 Kcl @ 100 ml/hr Right Conjunctivitis - Poly-Trim Eye drops to left eye - Can use in left eye is symptoms cross over HTN - BP stable on admission - Continue Telmisartan Type 2 Diabetes Mellitus - Home meds on hold - HbA1c with AM labs - Sliding scale with AC/HS checks Sleep Disturbance - Temazepam Chronic Back Pain - Tramadol PRN DVT prophylaxis - SCD - Lovenox Code Status - Level I Disposition - Med/Surg - OT/PT ordered; patient lives independently though at risk of deconditioning and ambulatory dysfunction Level of Care Med/Surg Resuscitation Status FULL RESUSCITATION VTE Prophylaxis VTE Risk Assessment Done? Y/N: Yes Risk Level: Moderate Given or contraindicated: Enoxaparin (Lovenox)SQ Assessment and Plan Attending Addendum: I have physically seen and examined this patient, have directed their medical care, have supervised the medical residents activities, and agree with the H&P as noted above, with the following changes: NONE
[2016-08-03 01:51] VITALS: BP 156/75; PULSE 60; TEMP 36.3; O2SAT 97; Ht 165.1 cm; Wt 63.4 kg
[2016-08-03] MEDS ORDERED: PATIENT'S HEIGHT AND/OR WEIGHT NEEDED SCH (02:00)
[2016-08-03] MEDS: NSS + 20MEQ KCL 1000ML 1,000 ML IV SCH ×3 (02:29→21:06)
[2016-08-03 06:21] LABS: BASO % 0.1 %; BASO ABS # 0.01 K/uL (0-0.2); COMPLETE YES; EOS % 0.1 %; HEMATOCRIT 37.7 % (37-47); IG% 0.4 %; LYMPH % 11.4 %; LYMPH ABS # 0.97 K/uL (1.2-3.4); MEAN CELL VOLUME 93.8 fL (80-100); MEAN CORPUSCULAR HEMOGLOBIN 31.6 pg (25-34); MEAN CORPUSCULAR HGB CONC 33.7 g/dl (32-36); MEAN PLATELET VOLUME 10.3 fL (7.4-10.4); MONO % 5.6 %; NEUT % 82.4 %; PLATELET COUNT 217 K/uL (130-400); RED BLOOD COUNT 4.02 M/uL (4.2-5.4); WHITE BLOOD COUNT 8.54 K/uL (4.8-10.8)
[2016-08-03 07:00] LABS: CALCIUM 8.7 mg/dl (8.5-10.1); CREATININE 0.75 mg/dl (0.60-1.20)
[2016-08-03 07:59] VITALS: BP 125/65; PULSE 66; TEMP 36.7; O2SAT 97
[2016-08-03 08:29] LABS: ESTIMATED AVERAGE GLUCOSE 154 mg/dl; HA1C FLAG Normal (Normal)
[2016-08-03] MEDS: TELMISARTAN 40 MG TAB PO SCH (08:56)
[2016-08-03] MEDS: MULTIVITAMIN TAB PO SCH (08:56)
[2016-08-03] MEDS: CHOLECALCIFEROL 1000 INTER.UNIT TAB PO SCH (08:56)
[2016-08-03] MEDS: ENOXAPARIN 40 MG/0.4 ML SYR SQ SCH (08:58)
[2016-08-03] MEDS: CEFTRIAXONE SOD INJ 1 GM in DEXTROSE 5% ADD-VANTAGE 50ML 50 ML IV SCH (08:59)
[2016-08-03] MEDS: TRIMETHOPRIM/POLYMYXIN B OP SCH ×4 (09:00→21:05)
[2016-08-03] MEDS: INSULIN ASPART 100 UNITS/ML 3 ML PEN SC SCH ×4 (09:00→21:00)
[2016-08-03] MEDS ORDERED: PROMETHAZINE HCL INJ 12.5 MG in SODIUM CHLORIDE 0.9% 50ML 50 ML IV PRN (12:15)
--- NOTE | 2016-08-03 12:23 | Progress Note ---
Progress Note Date of Service Aug 03, 2016. (Isabel Watkins ., LESLIE) Progress Note Patient admitted after midnight. Seen and examined by me. Patient complains of dizziness on standing that resolves with rest. She is still nauseous, although she is no longer vomiting. She ate some breakfast (regular solid diet) , but she was not able to eat very much and became more nauseous afterward. She denies abdominal pain, flank pain, dysuria, hematuria. The patient denies fevers, chills, sweats, chest pain, palpitations, claudication, cough, wheezing , shortness of breath, vomiting, abdominal pain, dysuria, hematuria, urinary retention, paralysis, weakness, acute numbness and tingling. Physical exam pertinent for slight erythema of left eye sclera. Mild suprapubic tenderness. No CVA tenderness. Physical exam otherwise unremarkable. A/P: Presumed UTI POA -Admitted to med/surg -Urine culture pending -Continue Rocephin 1 gm IV qd. Day #2 of antibiotics Nausea/vomiting--improving -Continue Zofran 4 mg IV q6h prn N/V -Add Phenergan 12.5 mg IV q6h prn N/V -Back diet down to clears for now Dizziness w/standing -Check orthostatic BPs (Isabel Watkins ., LESLIE) Reviewed: Pt Seen/Exam by Me (Betty Ferraro MD) History Physician Network Strategist Supervision Note: I interviewed and examined the patient. Discussed with JACINTO Watkins and agree with findings and plan as documented in the note. Any exceptions or clarifications are listed here: Pt feeling nauseated still but improved a bit since admission. No abd pain, no diarrhea. NAD, AAOx3, VSS RRR no mgr CTAB no wcr ABd +BS soft NT ND Ext: no edema 86 yo female with recurrent UTI and associated N/V similar to her last presentation of UTI as outpat in April 2016. -f/u Ur cx, continue abx -continue antiemetics, decrease diet back to clears until feeling better Documented By: Betty Ferraro (Betty Ferraro MD)
[2016-08-03 15:14] VITALS: BP 102/57; PULSE 60; TEMP 36.9; O2SAT 98
[2016-08-03 21:24] VITALS: BP_SYST 126; BP_SYST 133; BP_SYST 137; BP_DIAS 70; BP_DIAS 71; PULSE 65; O2SAT 95
[2016-08-04 00:11] VITALS: BP 139/42; PULSE 65; TEMP 36.6; O2SAT 95
[2016-08-04] MEDS: TEMAZEPAM 15 MG CAP PO PRN ×2 (00:31→22:00)
[2016-08-04 05:55] LABS: BASO % 0.9 %; BASO ABS # 0.06 K/uL (0-0.2); COMPLETE YES; EOS % 3.2 %; HEMATOCRIT 35.5 % (37-47); IG% 0.2 %; LYMPH ABS # 2.14 K/uL (1.2-3.4); MEAN CELL VOLUME 96.5 fL (80-100); MEAN CORPUSCULAR HEMOGLOBIN 31.3 pg (25-34); MEAN CORPUSCULAR HGB CONC 32.4 g/dl (32-36); MEAN PLATELET VOLUME 10.3 fL (7.4-10.4); MONO % 8.9 %; NEUT % 53.8 %; PLATELET COUNT 184 K/uL (130-400); RED BLOOD COUNT 3.68 M/uL (4.2-5.4); WHITE BLOOD COUNT 6.49 K/uL (4.8-10.8)
[2016-08-04 06:36] LABS: BUN/CREATININE RATIO 15.6 (10-20); CREATININE 0.74 mg/dl (0.60-1.20); POTASSIUM 4.1 mmol/L (3.5-5.1)
[2016-08-04 07:27] VITALS: BP_SYST 127; BP_SYST 138; BP_SYST 148; BP_DIAS 69; BP_DIAS 75; BP_DIAS 79; PULSE 62; TEMP 36.5; O2SAT 93
[2016-08-04] MEDS: TRIMETHOPRIM/POLYMYXIN B OP SCH ×4 (07:57→21:38)
[2016-08-04] MEDS: CEFTRIAXONE SOD INJ 1 GM in DEXTROSE 5% ADD-VANTAGE 50ML 50 ML IV SCH (07:58)
[2016-08-04] MEDS: TELMISARTAN 40 MG TAB PO SCH (07:58)
[2016-08-04] MEDS: CHOLECALCIFEROL 1000 INTER.UNIT TAB PO SCH (07:58)
[2016-08-04] MEDS: MULTIVITAMIN TAB PO SCH (07:58)
[2016-08-04] MEDS: ENOXAPARIN 40 MG/0.4 ML SYR SQ SCH (08:00)
[2016-08-04] MEDS: NSS + 20MEQ KCL 1000ML 1,000 ML IV SCH ×2 (08:02→18:19)
[2016-08-04] MEDS: INSULIN ASPART 100 UNITS/ML 3 ML PEN SC SCH ×4 (08:42→21:00)
[2016-08-04] MEDS ORDERED: VANCOMYCIN CONSULT ACTIVE PRN (10:30)
[2016-08-04] MEDS ORDERED: VANCOMYCIN INJ 1,550 MG in SODIUM CHLORIDE 0.9% 500ML 500 ML IV SCH (10:45)
--- NOTE | 2016-08-04 10:50 | Hospitalist Progress Note ---
Hospitalist Progress Note Date of Service Aug 04, 2016. (Isabel Watkins ., LEXIC) Subjective Pt evaluation today including: conversation w/ patient, physical exam, chart review, lab review, review of inpatient medication list Pain: None PO Intake: Tolerating clear liquid diet Voiding: no voiding problems Patient reports feeling much better today. She states that she is no longer nauseous or vomiting. She has been tolerating a clear liquid diet well without any difficulties. She states that she was finally able to have a bowel movement this morning, and is feeling much better now. She also states that her urinary frequency has improved. The patient states that last night her left eye was feeling much better as well, and her blurry vision had cleared, but when she woke up this morning, her vision was blurry again and she felt like something was in her eye. Nothing was found by nursing when they examined her eye. She states that today her eye is starting to feel better again after receiving her eye drops. The patient denies fevers, chills, sweats, chest pain , palpitations, claudication, cough, wheezing, shortness of breath, nausea, vomiting, abdominal pain, dysuria, hematuria, urinary retention, paralysis, weakness, numbness and tingling. Additional Comments: See HPI for pertinent positives and negatives. All other systems reviewed and negative. (Isabel Watkins ., JACINTO-C) Objective Vital Signs Date Time Temp Pulse Resp B/P (MAP) Pulse Ox O2 Delivery O2 Flow Rate FiO2 08/04/16 08:10 Room Air 08/04/16 07:27 36.5 62 16 127/69 (88) 93 138/75 (96) 148/79 (102) 08/04/16 00:53 Room Air 08/04/16 00:11 36.6 65 18 139/42 (74) 95 Room Air 08/03/16 21:24 65 18 126/70 (88) 95 Room Air 133/71 (91) 137/70 (92) 08/03/16 16:28 Room Air 08/03/16 15:14 36.9 60 18 102/57 (72) 98 Room Air (Isabel Watkins ., JACINTO-C) Physical Exam General Appearance: WD/WN, no apparent distress Eyes: PERRL, EOMI, + abnormal sclerae exam (left eye erythematous) ENT: normal ENT inspection, hearing grossly normal, pharynx normal Neck: supple, no JVD, trachea midline Respiratory/Chest: lungs clear, normal breath sounds, no respiratory distress Cardiovascular: regular rate, rhythm, no gallop, + systolic murmur Abdomen: normal bowel sounds, non tender, soft Extremities: non-tender, normal inspection, no pedal edema Neurologic/Psychiatric: alert, normal mood/affect, oriented x 3 Skin: normal color, warm/dry, no rash (Isabel Watkins, LESLIE) Laboratory Results Last 24 Hours Test 08/03/16 11:12 08/03/16 16:34 08/03/16 20:10 08/04/16 05:26 Bedside Glucose 140 mg/dl 125 mg/dl 93 mg/dl White Blood Count 6.49 K/uL Red Blood Count 3.68 M/uL Hemoglobin 11.5 g/dL Hematocrit 35.5 % Mean Corpuscular Volume 96.5 fL Mean Corpuscular Hemoglobin 31.3 pg Mean Corpuscular Hemoglobin Concent 32.4 g/dl Platelet Count 184 K/uL Mean Platelet Volume 10.3 fL Neutrophils (%) (Auto) 53.8 % Lymphocytes (%) (Auto) 33.0 % Monocytes (%) (Auto) 8.9 % Eosinophils (%) (Auto) 3.2 % Basophils (%) (Auto) 0.9 % Neutrophils # (Auto) 3.49 K/uL Lymphocytes # (Auto) 2.14 K/uL Monocytes # (Auto) 0.58 K/uL Eosinophils # (Auto) 0.21 K/uL Basophils # (Auto) 0.06 K/uL RDW Standard Deviation 45.8 fL RDW Coefficient of Variation 12.9 % Immature Granulocyte % (Auto) 0.2 % Immature Granulocyte # (Auto) 0.01 K/uL Sodium Level 143 mmol/L Potassium Level 4.1 mmol/L Chloride Level 110 mmol/L Carbon Dioxide Level 24 mmol/L Anion Gap 9.0 mmol/L Blood Urea Nitrogen 12 mg/dl Creatinine 0.74 mg/dl Est Creatinine Clear Calc Drug Dose 47.3 ml/min Estimated GFR () 83.8 Estimated GFR (Non- 72.3 BUN/Creatinine Ratio 15.6 Random Glucose 118 mg/dl Calcium Level 8.0 mg/dl Test 08/04/16 07:40 Bedside Glucose 118 mg/dl (Isabel Watknis ., LEXIC) Assessment and Plan 86 y/o female with a history of DM II, HTN, HLD, GERD, and insomnia who presents with urinary frequency, suprapubic pain, nausea and vomiting. UTI POA--improving, pt states less urinary frequency -Admitted to med/surg -Urine culture positive for enterococcus. Sensitivities pending -Per hospital records, pt has history of franco-sensitive enterococcus May 2016. Had franco-sensitive klebsiella in April 2016 -Discontinue Rocephin. Start vancomycin Nausea/vomiting--resolved -Continue Zofran 4 mg IV q6h prn N/V -Add Phenergan 12.5 mg IV q6h prn N/V -Advance to regular, diabetic diet Dizziness w/standing--resolved -Orthostatics negative Diabetes mellitus type 2 -Hold metformin and Januvia -Insulin sliding scale -Check BSGs q ac and qhs -HgbA1c was 7.0 on 08/03 HTN--stable -Continue telmisartan 20 mg PO qd Insomnia -Continue temazepam 15 mg PO qhs prn insomnia DVT prophylaxis -Enoxaparin 40 mg SC q24h -SCDs Code Status -Level I, FULL RESUSCITATION STATUS (Isabel Watkins ., LEXIC) Reviewed: Pt Seen/Exam by Me (Betty Ferraro MD) History Physician Dimensional Engineer Supervision Note: I interviewed and examined the patient. Discussed with JACINTO Watkins and agree with findings and plan as documented in the note. Any exceptions or clarifications are listed here: Pt feeling much improved. Ready for regular diet. Still with left eye redness and FB sensation, some photophobia as well. No crusted discharge but a mild watery discharge NAD, AAOx3, VSS HEENT: EOMI, pupils symmetric but left pupil a little sluggish to react and slightly irregular superior border, left sclera diffusely erythematous but conjunctiva not very erythematous, erythema does not spare the limbus-i.e. there is limbus flush, no preauricular PRAVIN, +photophobia with exam with light OS , no FB noted under upper lid RRR no mgr CTAB no wcr ABd +BS soft NT ND Ext: no edema 86 yo female with recurrent UTI and associated N/V similar to her last presentation of UTI as outpat in April 2016. -change to Vanco for now for Enterococcus although likely responded to Levaquin received in ER and is improving -once Ur sensitivity returns can send home with po abx Left eye erythema-highly suspicious clinically for anterior uveitis. I called her Collections Professional's office and discussed case with Dr. Maguire. He said her chart showed no previous record of iritis, but that they would be happy to see her as a walk-in tomorrow after she is discharged. They are open between 0800- 1530. Documented By: Betty Ferraro (Betty Ferraro MD)
[2016-08-04] MEDS ORDERED: GLUCOSE 40% GEL 15 GM TUBE PO PRN (12:00)
[2016-08-04] MEDS ORDERED: DEXTROSE 50% 50 ML SYR IV PRN (12:00)
[2016-08-04] MEDS ORDERED: GLUCAGON FOR INJ 1 MG VIAL SQ PRN (12:00)
[2016-08-04] MEDS ORDERED: GLUCOSE 10 TABS/TUBE PO PRN (12:00)
--- NOTE | 2016-08-04 14:41 | Pharmacy Progress Note ---
Pharmacy Antibiotic Consult Date of Service: Aug 04, 2016. Pharmacy Dosing Scope Pharmacy is consulted to initiate Vancomycin IV dosing therapy, order appropriate labs and adjust drug dose/frequency. Subjective The patient is a 86 year old female admitted on Aug 03, 2016 at 00:35 with N/V and recurrent UTI. Over the course of stay she has improved but today her Urine culture grew Enterococcus. At this point Isabel Watkins MANAS discontinued Rocephin and consulted pharmacy for Vancomycin IV dosing. The plan is to d/c on po abx when the culture sensitivities result. Objective Height (Feet): 5 Height (Inches): 5.00 Weight (Kilograms): 63.400 Lab Results (24hrs): Test 08/04/16 05:26 08/04/16 07:40 08/04/16 11:34 White Blood Count 6.49 K/uL (4.8-10.8) Red Blood Count 3.68 M/uL (4.2-5.4) Hemoglobin 11.5 g/dL (12.0-16.0) Hematocrit 35.5 % (37-47) Mean Corpuscular Volume 96.5 fL (80-100) Mean Corpuscular Hemoglobin 31.3 pg (25-34) Mean Corpuscular Hemoglobin Concent 32.4 g/dl (32-36) Platelet Count 184 K/uL (130-400) Mean Platelet Volume 10.3 fL (7.4-10.4) Neutrophils (%) (Auto) 53.8 % Lymphocytes (%) (Auto) 33.0 % Monocytes (%) (Auto) 8.9 % Eosinophils (%) (Auto) 3.2 % Basophils (%) (Auto) 0.9 % Neutrophils # (Auto) 3.49 K/uL (1.4-6.5) Lymphocytes # (Auto) 2.14 K/uL (1.2-3.4) Monocytes # (Auto) 0.58 K/uL (0.11-0.59) Eosinophils # (Auto) 0.21 K/uL (0-0.5) Basophils # (Auto) 0.06 K/uL (0-0.2) RDW Standard Deviation 45.8 fL (36.4-46.3) RDW Coefficient of Variation 12.9 % (11.5-14.5) Immature Granulocyte % (Auto) 0.2 % Immature Granulocyte # (Auto) 0.01 K/uL (0.00-0.02) Sodium Level 143 mmol/L (136-145) Potassium Level 4.1 mmol/L (3.5-5.1) Chloride Level 110 mmol/L (98-107) Carbon Dioxide Level 24 mmol/L (21-32) Anion Gap 9.0 mmol/L (3-11) Blood Urea Nitrogen 12 mg/dl (7-18) Creatinine 0.74 mg/dl (0.60-1.20) Est Creatinine Clear Calc Drug Dose 47.3 ml/min Estimated GFR () 83.8 Estimated GFR (Non- 72.3 BUN/Creatinine Ratio 15.6 (10-20) Random Glucose 118 mg/dl (70-99) Calcium Level 8.0 mg/dl (8.5-10.1) Bedside Glucose 118 mg/dl (70-90) 92 mg/dl (70-90) Micro Results: Item Value Date Time Urine Culture - Preliminary Resulted 08/02/16 2308 Urine,Catheterized Enterococcus Species Recent Pertinent Medications one dose of Levaquin in the ED prior to admission then Rocephin 1gm daily which has since been discontinued in favor of Vancomycin IV Assessment & Plan Loading dose: Vancomcyin 1550 (25mg/kg) IV X 1 dose then: Vancomycin 1000 mg ( ~15mg/kg) IV every 18 hours. I estimated her half life at around 16 hours. I will check a trough level prior to 1400 dose on 08/07/16 Goal trough level estimate: between 15-20 mcg/mL. Pharmacy will continue to follow and will adjust dose/frequency as necessary. Thank you
[2016-08-04 15:50] VITALS: BP 165/98; PULSE 65; TEMP 36.3; O2SAT 96
[2016-08-05] VITALS: BP_SYST 109; BP_SYST 138; BP_SYST 143; BP_DIAS 63; BP_DIAS 64; BP_DIAS 68; PULSE 61; PULSE 62; TEMP 36.4; O2SAT 96
[2016-08-05 00:15] VITALS: PULSE 62
[2016-08-05] MEDS: NSS + 20MEQ KCL 1000ML 1,000 ML IV SCH (04:08)
[2016-08-05 06:28] LABS: BASO ABS # 0.06 K/uL (0-0.2); COMPLETE YES; EOS % 6.1 %; HEMATOCRIT 35.6 % (37-47); IG% 0.2 %; LYMPH % 34.2 %; LYMPH ABS # 2.12 K/uL (1.2-3.4); MEAN CELL VOLUME 96.2 fL (80-100); MEAN CORPUSCULAR HEMOGLOBIN 32.2 pg (25-34); MEAN CORPUSCULAR HGB CONC 33.4 g/dl (32-36); MEAN PLATELET VOLUME 10.6 fL (7.4-10.4); MONO % 8.1 %; NEUT % 50.4 %; PLATELET COUNT 174 K/uL (130-400); WHITE BLOOD COUNT 6.19 K/uL (4.8-10.8)
[2016-08-05 07:01] VITALS: BP_SYST 131; BP_SYST 154; BP_SYST 161; BP_DIAS 60; BP_DIAS 69; BP_DIAS 75; PULSE 57; PULSE 58; TEMP 36.6; O2SAT 99
[2016-08-05 07:06] LABS: BUN/CREATININE RATIO 17.6 (10-20); CALCIUM 8.1 mg/dl (8.5-10.1); CREATININE 0.76 mg/dl (0.60-1.20); POTASSIUM 3.8 mmol/L (3.5-5.1)
[2016-08-05] MEDS: ENOXAPARIN 40 MG/0.4 ML SYR SQ SCH (08:00)
[2016-08-05] MEDS ORDERED: VANCOMYCIN INJ 1,000 MG in SODIUM CHLORIDE 0.9% 250ML 250 ML IV SCH (08:00)
[2016-08-05] MEDS: TRIMETHOPRIM/POLYMYXIN B OP SCH ×2 (08:01→12:01)
[2016-08-05] MEDS: MULTIVITAMIN TAB PO SCH (08:01)
[2016-08-05] MEDS: CHOLECALCIFEROL 1000 INTER.UNIT TAB PO SCH (08:01)
[2016-08-05] MEDS: TELMISARTAN 40 MG TAB PO SCH (08:01)
[2016-08-05] MEDS: INSULIN ASPART 100 UNITS/ML 3 ML PEN SC SCH ×2 (08:33→13:30)
[2016-08-05] MEDS ORDERED: LEVO1TAB35 PO (12:11)
--- NOTE | 2016-08-05 12:16 | Discharge Instructions ---
Discharge Instructions Date of Service Aug 05, 2016. Admission Reason for Admission: UTI Discharge Discharge Diagnosis / Problem: Urinary tract infection, nausea and vomiting Discharge Goals Goal(s): Decrease discomfort, Improve function, Diagnostic testing, Therapeutic intervention Activity Recommendations Activity Limitations: resume your previous activity . Instructions / Follow-Up Instructions / Follow-Up You were admitted to the hospital with nausea, vomiting, and a urinary tract infection (UTI). You were treated with IV antibiotics and IV anti-emetics. You were found to have enterococcus faecalis in your urine, which you have had in the past, and this was franco-sensitive to antibiotics. You will be discharged on an oral antibiotic for a few more days. The redness in your left eye is concerning for a condition called anterior uveitis. You will need to see your senior network security engineer, Dr. Maguire, right after you are discharged. His office is aware that you will be coming and you do not need an appointment. You need to arrive before 3:30 pm. They can do a special eye exam there to further evaluate your eye. Medications: *Please take Levaquin (levofloxacin) 750 mg by mouth every other day for the next 7 days. This is the antibiotic for your infection. First dose will be due 08/06/16. *Continue your other home medications as prescribed. Follow up: *See your senior network security engineer, Dr. Maguire, immediately after being discharged. You do not need an appointment. You must arrive before 3:30 pm to be seen today. *You have been scheduled for a follow up appointment with your primary care provider, Dr. Chu, on August 11 at 4:15 pm regarding your hospital stay. Please seek medical attention if you experience fevers, chills, sweats, chest pain, shortness of breath, nausea, vomiting, numbness or tingling. Current Hospital Diet Patient's current hospital diet: Diabetes Type 2 Diet Discharge Diet Recommended Diet: Diabetes Type 2 Diet Pending Studies Studies pending at discharge: no Laboratory Results Hemoglobin A1c Test 08/03/16 05:15 Range/Units Estimated Average Glucose 154 mg/dl Hemoglobin A1c 7.0 H 4.5-5.6 % Medical Emergencies . Who to Call and When: Medical Emergencies: If at any time you feel your situation is an emergency, please call 911 immediately. . Non-Emergent Contact Non-Emergency issues call your: Primary Care Provider, Vest Baster Call Non-Emergent contact if: you have a fever, you have any medication questions . Past History Medical & Surgical History: (1) Nausea & vomiting (2) UTI (urinary tract infection) . "Provider Documentation" section prepared by Isabel Watkins. . VTE Core Measure Inpt VTE Proph given/why not?: Enoxaparin (Lovenox)SQ
--- NOTE | 2016-08-05 13:30 | Discharge Summary ---
Discharge Summary Date of Service Aug 05, 2016. (Isabel Watkins .LESLIE) Discharge Summary Admission Date: Aug 03, 2016 at 00:35 Discharge Date: Aug 05, 2016 Discharge Disposition: Home Principal Diagnosis: UTI, nausea and vomiting Problems/Secondary Diagnoses: DM II HTN HLD GERD Insomnia (Isabel Watkins PA-C) Medication Reconciliation New Medications: Levofloxacin (Levaquin) 750 Mg Tab 750 MG PO Q2D for 7 Days, #4 TAB Take 1 tablet by mouth every other day, first dose 08/06/16 Continued Medications: Cholecalciferol (Vitamin D3) 1,000 Unit Tab 1000 INTER.UNIT PO DAILY, TAB 3 Refills Metformin Hcl Er (Glucophage Er) 500 Mg Tab 500 MG PO DAILY, TAB Multivitamin (Multivitamin) Tab 1 TAB PO DAILY, TAB Sitagliptin (Januvia) 100 Mg Tab 100 MG PO DAILY, TAB Telmisartan (Micardis) 40 Mg Tab 20 MG PO DAILY, TAB Temazepam (Restoril) 15 Mg Cap 15 MG PO HS PRN for Sleep, CAP Tramadol (Ultram) 50 Mg Tab 100 MG PO TID PRN for Pain, TAB Discharge Exam Patient reports feeling better. She denies any dysuria, hematuria, urinary frequency, abdominal or flank pain. She has been tolerating a regular diet without any more nausea or vomiting. She still complains of blurry vision in her left eye. The patient denies fevers, chills, sweats, chest pain, palpitations, claudication, cough, wheezing, shortness of breath, nausea, vomiting, abdominal pain, dysuria, hematuria, urinary retention, paralysis, weakness, numbness and tingling. Review of Systems: Constitutional: No fever, No chills, No sweats Eyes: + worsening of vision (blurry vision left eye), + redness, No eye pain , No diplopia ENT: No hearing loss, No sore throat, No trouble swallowing Respiratory: No cough, No wheezing, No shortness of breath Cardiovascular: No chest pain, No claudication, No palpitations Abdomen: No pain, No nausea, No vomiting Musculoskeletal: No joint pain, No muscle pain, No calf pain Genitourinary - Female: No dysuria, No urinary frequency, No urinary retention, No hematuria Neurologic: No paralysis, No weakness, No numbness/tingling Integumentary: No rash, No itch, No color change Physical Exam: General Appearance: WD/WN, no apparent distress Eyes: PERRL, EOMI, + abnormal sclerae exam (left sclera erythematous) ENT: normal ENT inspection, hearing grossly normal, pharynx normal Neck: supple, no JVD, trachea midline Respiratory/Chest: lungs clear, normal breath sounds, no respiratory distress Cardiovascular: regular rate, rhythm, no gallop, + systolic murmur Abdomen / GI: normal bowel sounds, non tender, soft Extremities: normal inspection, no calf tenderness, no pedal edema Neurologic/Psychiatric: alert, normal mood/affect, oriented x 3 Skin: normal color, warm/dry, no rash (Isabel Watkins ., LESILE) Hospital Course 86 y/o female with a history of DM II, HTN, HLD, GERD, and insomnia who presents with urinary frequency, suprapubic pain, nausea and vomiting. UTI POA--improving, pt states less urinary frequency -Admitted to med/surg -Urine culture positive for enterococcus. 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 Had franco-sensitive klebsiella in April 2016 -Started on vancomycin while inpatient. Responded to Levaquin and is sensitive , so will d/c on PO Levaquin for 4 more doses (total 7 day course). Renally dosed 750 q48h Nausea/vomiting--resolved -Continue Zofran 4 mg IV q6h prn N/V -Add Phenergan 12.5 mg IV q6h prn N/V -Advance to regular, diabetic diet Dizziness w/standing--resolved -Orthostatics negative Left eye erythematous sclera -Concern for anterior uveitis due to sluggish reaction to light, blurry vision, and erythema of limbus as well -Pt is going to button tacker after being discharged for further evaluation Diabetes mellitus type 2 -Hold metformin and Januvia, resume on discharge -Insulin sliding scale -Check BSGs q ac and qhs -HgbA1c was 7.0 on 08/03 HTN--stable -Continue telmisartan 20 mg PO qd Insomnia -Continue temazepam 15 mg PO qhs prn insomnia DVT prophylaxis -Enoxaparin 40 mg SC q24h -SCDs Code Status -Level I, FULL RESUSCITATION STATUS Total Time Spent: Greater than 30 minutes This includes examination of the patient, discharge planning, medication reconciliation, and communication with other providers. (Isabel Watkins ., LESLIE) Discharge Instructions Please refer to the electronic Patient Visit Report (Discharge Instructions) for additional information. (Isabel Watkins ., LESLIE) Additional Copies To Archie Chu M.D. Reviewed: Pt Seen/Exam by Me (Betty Ferraro MD) History Physician Front Office Agent Supervision Note: I interviewed and examined the patient. Discussed with JACINTO Watkins and agree with findings and plan as documented in the note. Any exceptions or clarifications are listed here: Pt feeling much improved. Ready for discharge. Left eye still painful and red NAD, AAOx3, VSS HEENT: EOMI, pupils symmetric but left pupil a little sluggish to react and slightly irregular superior border, left sclera diffusely erythematous but conjunctiva not very erythematous, erythema does not spare the limbus-i.e. there is limbus flush, no preauricular PRAVIN, +photophobia with exam with light OS , no FB noted under upper lid RRR no mgr CTAB no wcr ABd +BS soft NT ND Ext: no edema 86 yo female with recurrent UTI and associated N/V similar to her last presentation of UTI as outpat in April 2016. -treated with IV Vanco for Enterococcus Ur cx with pansensitive Enterococcus on day of dc--> po Levaquin at home Left eye erythema-highly suspicious clinically for anterior uveitis. I called her [employer] Maker's office and discussed case with Dr. Maguire. He said her chart showed no previous record of iritis, but that they would be happy to see her as a walk-in today after she is discharged. They are open between [id number]. Documented By: Betty Ferraro (Betty Ferraro MD)
[2016-08-05 13:33] VITALS: BP 161/75; PULSE 57; TEMP 36.6; O2SAT 99
[2016-08-07] MEDS ORDERED: VANCOMYCIN TROUGH SCH (13:30)
[2016-11-03] MEDS ORDERED: TRAM-10 PO (12:00)
[2016-11-03] MEDS ORDERED: METF500T5 PO (12:00)
[2016-11-03] MEDS ORDERED: TEMA15CA4 PO (12:00)
[2016-11-03] MEDS ORDERED: SITA1TAB27 PO (12:00)
[2016-11-05] MEDS ORDERED: CIPR250T5 PO (12:02)
== END 2016-08-05 13:57 | disposition home health service (06) | DRG 690 ==
LOC: EDBD 21:47 → C.EDA 21:51 → C.4E 08-03 00:35 → ENRESERV 08-03 01:23
PROVIDERS: ADMIT Student in an Organized Health Care Education/Training Program; ATTEND Family Medicine
DX: N39.0 Urinary tract infection, site not specified (principal); H20.9 Unspecified iridocyclitis; Z83.3 Family history of diabetes mellitus; Z82.49 Family history of ischemic heart disease and other diseases of the circulatory system; R11.2 Nausea with vomiting, unspecified; I10 Essential (primary) hypertension; E11.9 Type 2 diabetes mellitus without complications; G47.9 Sleep disorder, unspecified; M54.9 Dorsalgia, unspecified; G47.00 Insomnia, unspecified

== ENCOUNTER → 2016-08-11 | Outpatient (CLI) | payer BC, OTHER ==
[~2016-08-11] MED LIST changes: -CEPH500C PO; +CHOL1000 PO; +LEVO1TAB35 PO; +METF500T5 PO; +MULT-506 PO; -ONDA4TAB10 SL; +SITA1TAB27 PO; +TEMA15CA4 PO; +TRAM-10 PO
== END | disposition home or self-care (01) ==
LOC: C.LAB 17:31
PROVIDERS: ATTEND Internal Medicine
DX: H20.9 Unspecified iridocyclitis (principal)

== ENCOUNTER 2016-11-03 13:45 | Observation (INO) | payer BC, OTHER ==
[~2016-11-03] VITALS: Ht 167.6 cm; Wt 63.2 kg
[~2016-11-03 13:45] MED LIST changes: -CHOL1000 PO; -LEVO1TAB35 PO; -MULT-506 PO
[2016-11-03] MEDS ORDERED: ONDANSETRON INJ 2 MG/ML 2 ML VIAL IV STA (14:14)
[2016-11-03] MEDS ORDERED: SODIUM CHLORIDE 0.9% 1000ML 1,000 ML IV STA ×2 (14:14→16:17)
--- NOTE | 2016-11-03 14:49 | EMERGENCY ROOM VISIT NOTE ---
History Report prepared by Bertha: Ashvin Dominguez Under the Supervision of: Dr. Chantelle Iniguez D.O. First contact with patient: 13:57 Chief Complaint: DIZZY Stated Complaint: DIZZINESS/NAUSEA History of Present Illness The patient is an 86 year old female who presents to the Emergency Room with complaints of constant dizziness beginning this morning. The patient states that she is not able to walk or keep her balance without needing support. She reports that the room is not spinning; she is just off-balance. States this is better at rest/laying down. The patient notes that she was in the ED for similar symptoms in July, and she was told she had a UTI. She reports that she is not prone to UTIs. She states that she also has a history of iritis. The patient reports that she is currently being treated for it, but it has been bothering her more the past few days. She notes that her vision has been blurry as well. The patient states that yesterday, she felt very tired, but was able to eat okay. She reports that she has not had anything to drink since last night , and her appetite has decreased. The patient notes that she has been nauseous since the onset of her dizziness, and she has vomited numerous times. She states that now she is dry heaving. The patient reports that she has been urinating more frequently than normal, and this was consistent with her last UTI. She denies odorous urine and dysuria. The patient notes that she has been slightly constipated, but her bowels have been fluctuating ever since she had colon cancer. She denies changes in her medication, headache, hematochezia, and melena. The patient states that she has neuropathy in her left leg, and it has been bother her for the past couple of days. Source of History: patient Onset: this morning Position: other (global) Quality: other (dizziness) Timing: constant Associated Symptoms: + nausea, + vomiting, No headache, No melena, No hematochezia Note: Associated symptoms: more frequent urination, off-balance, blurry vision, decreased appetite, decreased fluid intake, dry heaving, constipated, left leg Denies: changes in medication, odorous urine, dysuria Review of Systems See HPI for pertinent positives & negatives. A total of 10 systems reviewed and were otherwise negative. Past Medical & Surgical Medical Problems: (1) Chronic back pain (2) Colon cancer (3) Diabetes (4) History of colon cancer (5) HTN (hypertension) (6) Neuropathy (7) Right conjunctivitis (8) Sleeping difficulties (9) Type 2 diabetes mellitus Surgical Problems: (1) History of hip replacement Family History Diabetes mellitus FHx: cancer Hypertension Social History Smoking Status: Never Smoker Alcohol Use: none Drug Use: none Marital Status: single Housing Status: lives alone Occupation Status: retired Current/Historical Medications Scheduled Cholecalciferol (Vitamin D3), 1,000 INTER.UNIT PO DAILY Diclofenac Sodium (Topical) (Voltaren 1% Top Gel), 1 APPLN TOP UD Loperamide Hcl (Imodium), 2 MG PO UD Metformin Hcl Er (Glucophage Er), 500 MG PO DAILY Multivitamin (Multivitamin), 1 TAB PO DAILY Sitagliptin (Januvia), 100 MG PO DAILY Telmisartan (Micardis), 20 MG PO DAILY Scheduled PRN Acetaminophen (Tylenol), 1 TAB PO Q4 PRN for Headache or Pain Temazepam (Restoril), 15 MG PO HS PRN for Sleep Tramadol (Ultram), 50 MG PO TID PRN for Pain Allergies Coded Allergies: Morphine (Unverified Allergy, Mild, 08/02/16) Pioglitazone (Verified Allergy, Unknown, NAUSEA, 11/03/16) Sulfamethoxazole w/Trimethoprim (Verified Adverse Reaction, Severe, NAUSEA , 11/03/16) Physical Exam Vital Signs Date Time Temp Pulse Resp B/P (MAP) Pulse Ox O2 Delivery O2 Flow Rate FiO2 11/03/16 19:11 Room Air 11/03/16 18:02 11/03/16 18:02 65 18 145/67 96 Room Air 60 93/75 67 174/100 11/03/16 17:57 74 11/03/16 17:00 61 18 133/59 96 Room Air 11/03/16 15:53 57 16 159/69 96 Room Air 11/03/16 14:43 57 16 156/74 97 11/03/16 13:59 97 Room Air 11/03/16 13:56 58 11/03/16 13:54 36.6 54 18 154/74 97 Room Air Physical Exam GENERAL: alert, well appearing, well nourished, no distress, non-toxic EYE EXAM: normal conjunctiva, PRRL and EOM's grossly intact, Left pupil has mild anisocoria - consistent with prior cataract surgery. OROPHARYNX: no exudate, no erythema, lips, buccal mucosa, and tongue normal and mucous membranes are moist NECK: supple, no nuchal rigidity, no adenopathy, non-tender. No carotid burry. LUNGS: Clear to auscultation. Normal chest wall mechanics HEART: no murmurs, S1 normal and S2 normal ABDOMEN: abdomen soft, normo-active bowel sounds, no masses, no rebound or guarding. Generalized discomfort upon palpation. BACK: Back is symmetrical on inspection and there is no deformity, no midline tenderness, no CVA tenderness. SKIN: no rashes and no bruising UPPER EXTREMITIES: upper extremities are grossly normal. LOWER EXTREMITIES: No pitting edema. NEURO EXAM: Normal sensorium, cranial nerves II-XII grossly intact, normal speech, no gross weakness of arms, no gross weakness of legs. No drift. Finger to nose intact. Gross sensation intact. Medical Decision & Procedures ER Provider Diagnostic Interpretation: CT:Per my review, radiologist interpretation. HEAD WITHOUT CONTRAST (CT) CLINICAL HISTORY: 86 years-old Female presenting with dizziness, vomiting. TECHNIQUE: Multidetector CT imaging of the head was performed without the use of intravenous contrast. IV contrast: None. A dose lowering technique was used consistent with the principles of ALARA (as low as reasonably achievable). COMPARISON: 08/02/2016. CT DOSE (mGy.cm): The estimated cumulative dose is 537.48 mGy.cm. FINDINGS: Wardrobe Technician topogram: Unremarkable. Ventricles and sulci normal in size. Periventricular and subcortical white matter hypoattenuation, nonspecific but likely indicative of chronic small vessel ischemic change. No mass effect or midline shift. No hemorrhage or acute territorial infarct. No extra-axial fluid collection. Paranasal sinuses and mastoid air cells clear. Calvarium intact. IMPRESSION: 1. No acute intracranial pathology. Electronically signed by: Archie Rubin M.D. 11/03/2016 2:59 PM Dictated Date/Time: 11/03/2016 2:56 PM Laboratory Results 11/03/16 14:32 Red Blood Count 4.06, Mean Corpuscular Volume 94.1, Mean Corpuscular Hemoglobin 32.8, Mean Corpuscular Hemoglobin Concent 34.8, Mean Platelet Volume 10.4, Neutrophils (%) (Auto) 79.9, Lymphocytes (%) (Auto) 14.4, Monocytes (%) (Auto) 4.0, Eosinophils (%) (Auto) 0.8, Basophils (%) (Auto) 0.6, Neutrophils # (Auto) 5.04, Lymphocytes # (Auto) 0.91, Monocytes # (Auto) 0.25, Eosinophils # (Auto) 0.05, Basophils # (Auto) 0.04 11/03/16 14:32 Test 11/03/16 14:32 11/03/16 16:24 White Blood Count 6.31 K/uL (4.8-10.8) Red Blood Count 4.06 M/uL (4.2-5.4) Hemoglobin 13.3 g/dL (12.0-16.0) Hematocrit 38.2 % (37-47) Mean Corpuscular Volume 94.1 fL (80-100) Mean Corpuscular Hemoglobin 32.8 pg (25-34) Mean Corpuscular Hemoglobin Concent 34.8 g/dl (32-36) Platelet Count 179 K/uL (130-400) Mean Platelet Volume 10.4 fL (7.4-10.4) Neutrophils (%) (Auto) 79.9 % Lymphocytes (%) (Auto) 14.4 % Monocytes (%) (Auto) 4.0 % Eosinophils (%) (Auto) 0.8 % Basophils (%) (Auto) 0.6 % Neutrophils # (Auto) 5.04 K/uL (1.4-6.5) Lymphocytes # (Auto) 0.91 K/uL (1.2-3.4) Monocytes # (Auto) 0.25 K/uL (0.11-0.59) Eosinophils # (Auto) 0.05 K/uL (0-0.5) Basophils # (Auto) 0.04 K/uL (0-0.2) RDW Standard Deviation 43.1 fL (36.4-46.3) RDW Coefficient of Variation 12.6 % (11.5-14.5) Immature Granulocyte % (Auto) 0.3 % Immature Granulocyte # (Auto) 0.02 K/uL (0.00-0.02) Prothrombin Time 11.0 SECONDS (9.0-12.0) Prothromb Time International Ratio 1.0 (0.9-1.1) Anion Gap 8.0 mmol/L (3-11) Estimated GFR () 91.0 Estimated GFR (Non- 78.5 BUN/Creatinine Ratio 19.1 (10-20) Lactic Acid Level 1.4 mmol/L (0.4-2.0) Calcium Level 9.5 mg/dl (8.5-10.1) Magnesium Level 2.0 mg/dl (1.8-2.4) Total Bilirubin 0.8 mg/dl (0.2-1) Aspartate Amino Transf (AST/SGOT) 16 U/L (15-37) Alanine Aminotransferase (ALT/SGPT) 13 U/L (12-78) Alkaline Phosphatase 59 U/L (45-117) Troponin I < 0.015 ng/ml (0-0.045) Total Protein 6.7 gm/dl (6.4-8.2) Albumin 3.7 gm/dl (3.4-5.0) Globulin 3.0 gm/dl (2.5-4.0) Albumin/Globulin Ratio 1.2 (0.9-2) Thyroid Stimulating Hormone (TSH) 1.380 uIu/ml (0.300-4.500) Urine Color YELLOW Urine Appearance CLOUDY (CLEAR) Urine pH 8.5 (4.5-7.5) Urine Specific [place] 1.016 (1.000-1.030) Urine Protein NEG (NEG) Urine Glucose (UA) NEG (NEG) Urine Ketones 1+ (NEG) Urine Occult Blood NEG (NEG) Urine Nitrite NEG (NEG) Urine Bilirubin NEG (NEG) Urine Urobilinogen NEG (NEG) Urine Leukocyte Esterase TRACE (NEG) Urine WBC (Auto) 1-5 /hpf (0-5) Urine RBC (Auto) 0-4 /hpf (0-4) Urine Hyaline Casts (Auto) 0 /lpf (0-5) Urine Epithelial Cells (Auto) 5-10 /lpf (0-5) Urine Bacteria (Auto) NEG (NEG) Laboratory results per my review. Medications Administered Medications (Trade) Dose Ordered Sig/Saima Route Start Time Stop Time Status Last Admin Dose Admin Sodium Chloride 1,000 ml @ 999 mls/hr Q1H1M STAT IV 11/03/16 14:14 11/03/16 15:14 DC 11/03/16 14:34 999 MLS/HR Ondansetron HCl (Zofran Inj) 4 mg NOW STAT IV 11/03/16 14:14 11/03/16 14:17 DC 11/03/16 14:34 4 MG Sodium Chloride 1,000 ml @ 250 mls/hr Q4H STAT IV 11/03/16 16:17 11/03/16 20:16 DC 11/03/16 16:32 250 MLS/HR Sodium Chloride 1,000 ml @ 100 mls/hr Q10H IV 11/03/16 19:15 12/03/16 19:14 11/04/16 16:37 100 MLS/HR Ondansetron HCl (Zofran Inj) 4 mg Q6H PRN IV 11/03/16 19:15 12/03/16 19:14 11/03/16 19:41 4 MG ECG Indication: weakness Rate (beats per minute): 54 Rhythm: sinus bradycardia Findings: Q waves (Leads V1 and V2), no acute ischemic change, other (Normal axis and interval) Comparison ECG Date: 08-02-16 Change: no significant change ED Course 1402: The patient was evaluated in room A12B. A complete history and physical exam was performed. 1414: Ordered Sodium Chloride 1000 ml @ 999 mls/hr IV, Ondansetron HCl 4mg IV 1617: I reevaluated the patient, she still feels off balance. I updated her and her family on labs and her CT. I am waiting on the patient's urinalysis. Ordered Sodium Chloride 1000 ml @ 250 mls/hr IV 1734: I reevaluated the patient, and she is feeling better. She asked for ice chips. 1816: The patient failed her ambulatory trial. During the trial she became ataxic and nauseous. I completed another neurological exam, and there was no change. 1828: I discussed the patient's case with Dr. Liriano, [facility] Hospitalist. The patient will be evaluated for further treatment. Medical Decision Differential diagnosis includes etiologies such as benign positional vertigo, dehydration, hypovolemia, anemia, tumor, infection, hypoglycemia, electrolyte abnormalities, cardiac sources, intracerebral event, toxicologic, neurologic, as well as others were entertained. Pt with nonfocal neuro exam despite chronic neuropathy, and some symptoms seemed positional/orthostatic and pt reported feeling improved after 2L IVF, however pt failed orthostatic testing and was unable to walk with steady or normal gait even with assistance. No clear infectious etiology. VS otw stable. I feel less likely cardiac etiology, concern for possible need for additional neuro eval. Pt lives alone and would be high risk of fall. Hospitalist to evaluate further. Doubt vascular etiology, no other acute GI pathology. Doubt related to iritis pt has been following with specialist for 3 months. Medication Reconcilliation Current Medication List: was personally reviewed by me Blood Pressure Screening Patient's blood pressure: Elevated blood pressure Monitored by hospitalist. Consults Time Called: 1819 Consulting Physician: Dr. Liriano, [facility] Hospitalist Returned Call: [phone] I discussed the patient's case with Dr. Liriano, [facility] Hospitalist. The patient will be evaluated for further treatment. Impression Primary Impression: Dizziness Additional Impressions: Vomiting Dehydration Scribe Attestation The scribe's documentation has been prepared under my direction and personally reviewed by me in its entirety. I confirm that the note above accurately reflects all work, treatment, procedures, and medical decision making performed by me. Departure Information Dispostion Being Evaluated By Hospitalist Referrals Archie Chu M.D. (PCP) Patient Instructions My [facility] Health Problem Qualifiers Additional Impressions: Vomiting Vomiting type: unspecified Vomiting Intractability: non-intractable Nausea presence: with nausea Qualified Codes: R11.2 - Nausea with vomiting, unspecified
[2016-11-03 14:59] LABS: BASO % 0.6 %; BASO ABS # 0.04 K/uL (0-0.2); COMPLETE YES; EOS % 0.8 %; HEMATOCRIT 38.2 % (37-47); IG% 0.3 %; LYMPH % 14.4 %; LYMPH ABS # 0.91 K/uL (1.2-3.4); MEAN CELL VOLUME 94.1 fL (80-100); MEAN CORPUSCULAR HEMOGLOBIN 32.8 pg (25-34); MEAN CORPUSCULAR HGB CONC 34.8 g/dl (32-36); MEAN PLATELET VOLUME 10.4 fL (7.4-10.4); NEUT % 79.9 %; PLATELET COUNT 179 K/uL (130-400); RED BLOOD COUNT 4.06 M/uL (4.2-5.4); WHITE BLOOD COUNT 6.31 K/uL (4.8-10.8)
--- NOTE | 2016-11-03 15:00 | DIAGNOSTIC IMAGING REPORT ---
HEAD WITHOUT CONTRAST (CT) CLINICAL HISTORY: 86 years-old Female presenting with dizziness, vomiting. TECHNIQUE: Multidetector CT imaging of the head was performed without the use of intravenous contrast. IV contrast: None. A dose lowering technique was used consistent with the principles of ALARA (as low as reasonably achievable). COMPARISON: 08/02/2016. CT DOSE (mGy.cm): The estimated cumulative dose is 537.48 mGy.cm. FINDINGS: Textile Examiner topogram: Unremarkable. Ventricles and sulci normal in size. Periventricular and subcortical white matter hypoattenuation, nonspecific but likely indicative of chronic small vessel ischemic change. No mass effect or midline shift. No hemorrhage or acute territorial infarct. No extra-axial fluid collection. Paranasal sinuses and mastoid air cells clear. Calvarium intact. IMPRESSION: 1. No acute intracranial pathology. Electronically signed by: Archie Rubin M.D. 11/03/2016 2:59 PM Dictated Date/Time: 11/03/2016 2:56 PM
[2016-11-03 15:11] LABS: ALT/SGPT 13 U/L (12-78); BLOOD UREA NITROGEN 13 mg/dl (7-18); BUN/CREATININE RATIO 19.1 (10-20); CALCIUM 9.5 mg/dl (8.5-10.1); CARBON DIOXIDE 27 mmol/L (21-32); CHLORIDE 103 mmol/L (98-107); CREATININE 0.67 mg/dl (0.60-1.20); GLUCOSE 188 mg/dl (70-99); SODIUM 138 mmol/L (136-145)
[2016-11-03 15:22] LABS: ALB/GLOB RATIO 1.2 (0.9-2); ALKALINE PHOSPHATASE 59 U/L (45-117); AST/SGOT 16 U/L (15-37)
[2016-11-03] MEDS ORDERED: DICL1GEL12 TOP (15:39)
[2016-11-03] MEDS ORDERED: ACET-1256 PO (15:39)
[2016-11-03] MEDS ORDERED: TELM5TAB2 PO (15:39)
[2016-11-03] MEDS ORDERED: IMD/2 PO (15:39)
[2016-11-03 16:55] LABS: URINE APPEARANCE CLOUDY (CLEAR); URINE BILIRUBIN NEG (NEG); URINE COLOR YELLOW; URINE NITRITE NEG (NEG); URINE PH 8.5 (4.5-7.5); URINE SPECIFIC GRAVITY 1.016 (1.000-1.030); UROBILINOGEN NEG (NEG); ZZURINE CULT IF INDIC CATH NO
[2016-11-03 17:04] LABS: MANUAL MICROSCOPIC REQUIRED? NO; REVIEW REQ? NO
[2016-11-03 19:11] VITALS: Ht 167.6 cm; Wt 63.2 kg
[2016-11-03] MEDS ORDERED: ACETAMINOPHEN 325 MG TAB PO PRN (19:15)
[2016-11-03] MEDS ORDERED: ONDANSETRON INJ 2 MG/ML 2 ML VIAL IV PRN (19:15)
[2016-11-03] MEDS: SODIUM CHLORIDE 0.9% 1000ML 1,000 ML IV SCH (19:15)
[2016-11-03] MEDS ORDERED: TRAMADOL HCL 50 MG TAB PO PRN (19:30)
[2016-11-03] MEDS ORDERED: TEMAZEPAM 15 MG CAP PO PRN (19:30)
--- NOTE | 2016-11-03 19:35 | History and Physical ---
History & Physical Date & Time of Service: Nov 03, 2016 at 19:24 Chief Complaint: Dizziness/Nausea Primary Care Physician: Archie Chu M.D. History of Present Illness Source: patient, family (daughter) Pt is an 86 yo female who presents to the ER with complaints of constant dizziness beginning this morning. Pt states that she got up then morning and felt weak and unsteady. Pt denies any falls or vertigo, she states she was just off balance. She has recently been treating her iritis infection with 2 sets of eye drops. She denies any fevers, chills, N/V/D, abd pain or urinary sx. In the ED, pt was noted to have orthostatic hypotension. Past Medical/Surgical History Medical Problems: (1) Colon cancer Status: Resolved (2) Diabetes Status: Chronic (3) HTN (hypertension) Status: Chronic (4) Neuropathy Status: Chronic Surgical Problems: (1) History of hip replacement Status: Resolved Family History Diabetes mellitus FHx: cancer Hypertension Social History Smoking Status: Never Smoker Drug Use: none Marital Status: single Housing status: lives alone Occupational Status: retired Multi-Drug Resistant Organisms History of MDRO: No Allergies Coded Allergies: Morphine (Unverified Allergy, Mild, 08/02/16) Pioglitazone (Verified Allergy, Unknown, NAUSEA, 11/03/16) Sulfamethoxazole w/Trimethoprim (Verified Adverse Reaction, Severe, NAUSEA , 11/03/16) Home Medications Scheduled Cholecalciferol (Vitamin D3), 1,000 INTER.UNIT PO DAILY Diclofenac Sodium (Topical) (Voltaren 1% Top Gel), 1 APPLN TOP UD Loperamide Hcl (Imodium), 2 MG PO UD Metformin Hcl Er (Glucophage Er), 500 MG PO DAILY Multivitamin (Multivitamin), 1 TAB PO DAILY Sitagliptin (Januvia), 100 MG PO DAILY Telmisartan (Micardis), 20 MG PO DAILY Scheduled PRN Acetaminophen (Tylenol), 1 TAB PO Q4 PRN for Headache or Pain Temazepam (Restoril), 15 MG PO HS PRN for Sleep Tramadol (Ultram), 50 MG PO TID PRN for Pain Review of Systems Constitutional: + weakness, + fatigue, No fever, No chills Eyes: + eye pain, + redness, + problem reported (watery eyes), No worsening of vision, No diplopia Respiratory: No cough, No sputum, No wheezing, No shortness of breath, No dyspnea on exertion, No dyspnea at rest Cardiovascular: No chest pain, No orthopnea, No PND, No edema Abdomen: No pain, No nausea, No vomiting, No diarrhea Musculoskeletal: No joint pain, No muscle pain, No swelling, No calf pain Genitourinary - Female: No dysuria, No urinary frequency, No urinary urgency, No urinary incontinence Neurologic: No memory loss, No paralysis, No weakness, No numbness/tingling Psychiatric: No depression symptoms, No anhedonism, No anxiety, No insomnia Endocrine: No fatigue, No excessive thirst Integumentary: No rash, No itch Physical Exam Vital Signs Date Time Temp Pulse Resp B/P (MAP) Pulse Ox O2 Delivery O2 Flow Rate FiO2 11/03/16 19:11 Room Air 11/03/16 18:02 11/03/16 18:02 65 18 145/67 96 Room Air 60 93/75 67 174/100 11/03/16 17:57 74 11/03/16 17:00 61 18 133/59 96 Room Air 11/03/16 15:53 57 16 159/69 96 Room Air 11/03/16 14:43 57 16 156/74 97 11/03/16 13:59 97 Room Air 11/03/16 13:56 58 11/03/16 13:54 36.6 54 18 154/74 97 Room Air General Appearance: WD/WN, no apparent distress, + thin Head: normocephalic, atraumatic Eyes: normal inspection, PERRL, + pertinent finding (watery eyes) Neck: supple, no adenopathy, thyroid normal Respiratory/Chest: chest non-tender, lungs clear, normal breath sounds, no respiratory distress Cardiovascular: regular rate, rhythm, no gallop, no JVD Abdomen/GI: normal bowel sounds, non tender, no organomegaly Neurologic/Psych: no motor/sensory deficits, alert, normal mood/affect, oriented x 3 Skin: normal color, warm/dry, no rash Lymphatic: no adenopathy Diagnostics Laboratory Results Results Past 24 Hours Test 11/03/16 14:32 11/03/16 16:24 Range/Units White Blood Count 6.31 4.8-10.8 K/uL Red Blood Count 4.06 4.2-5.4 M/uL Hemoglobin 13.3 12.0-16.0 g/dL Hematocrit 38.2 37-47 % Mean Corpuscular Volume 94.1 80-100 fL Mean Corpuscular Hemoglobin 32.8 25-34 pg Mean Corpuscular Hemoglobin Concent 34.8 32-36 g/dl Platelet Count 179 130-400 K/uL Mean Platelet Volume 10.4 7.4-10.4 fL Neutrophils (%) (Auto) 79.9 % Lymphocytes (%) (Auto) 14.4 % Monocytes (%) (Auto) 4.0 % Eosinophils (%) (Auto) 0.8 % Basophils (%) (Auto) 0.6 % Neutrophils # (Auto) 5.04 1.4-6.5 K/uL Lymphocytes # (Auto) 0.91 1.2-3.4 K/uL Monocytes # (Auto) 0.25 0.11-0.59 K/uL Eosinophils # (Auto) 0.05 0-0.5 K/uL Basophils # (Auto) 0.04 0-0.2 K/uL RDW Standard Deviation 43.1 36.4-46.3 fL RDW Coefficient of Variation 12.6 11.5-14.5 % Immature Granulocyte % (Auto) 0.3 % Immature Granulocyte # (Auto) 0.02 0.00-0.02 K/uL Prothrombin Time 11.0 9.0-12.0 SECONDS Prothromb Time International Ratio 1.0 0.9-1.1 Sodium Level 138 136-145 mmol/L Potassium Level 4.0 3.5-5.1 mmol/L Chloride Level 103 98-107 mmol/L Carbon Dioxide Level 27 21-32 mmol/L Anion Gap 8.0 3-11 mmol/L Blood Urea Nitrogen 13 7-18 mg/dl Creatinine 0.67 0.60-1.20 mg/dl Estimated GFR () 91.0 Estimated GFR (Non- 78.5 BUN/Creatinine Ratio 19.1 10-20 Random Glucose 188 70-99 mg/dl Lactic Acid Level 1.4 0.4-2.0 mmol/L Calcium Level 9.5 8.5-10.1 mg/dl Magnesium Level 2.0 1.8-2.4 mg/dl Total Bilirubin 0.8 0.2-1 mg/dl Aspartate Amino Transf (AST/SGOT) 16 15-37 U/L Alanine Aminotransferase (ALT/SGPT) 13 12-78 U/L Alkaline Phosphatase 59 45-117 U/L Troponin I < 0.015 0-0.045 ng/ml Total Protein 6.7 6.4-8.2 gm/dl Albumin 3.7 3.4-5.0 gm/dl Globulin 3.0 2.5-4.0 gm/dl Albumin/Globulin Ratio 1.2 0.9-2 Thyroid Stimulating Hormone (TSH) 1.380 0.300-4.500 uIu/ml Urine Color YELLOW Urine Appearance CLOUDY CLEAR Urine pH 8.5 4.5-7.5 Urine Specific [place] 1.016 1.000-1.030 Urine Protein NEG NEG Urine Glucose (UA) NEG NEG Urine Ketones 1+ NEG Urine Occult Blood NEG NEG Urine Nitrite NEG NEG Urine Bilirubin NEG NEG Urine Urobilinogen NEG NEG Urine Leukocyte Esterase TRACE NEG Urine WBC (Auto) 1-5 0-5 /hpf Urine RBC (Auto) 0-4 0-4 /hpf Urine Hyaline Casts (Auto) 0 0-5 /lpf Urine Epithelial Cells (Auto) 5-10 0-5 /lpf Urine Bacteria (Auto) NEG NEG Impression Assessment and Plan Pt is a 86 yo female who presents to ER with dizziness, weakness that started this AM Dizziness/weakness likely related to orthostatic hypotension which was evident in ER. Pt reports weakness and dizziness upon standing. With increased age there is likely autonomic dysfunction. Will hold pts micardis medication and aggressively hydrate. Will repeat orthostatic vitals as well. CT head unremarkable and no neuro deficits noted. No infectious source noted as well DM II - Cont metformin and januvia. Glucose stable HTN - Hold micardis at this time Iritis - Cont opthal drops Insomnia - Cont temazepam Hx of colon cancer and resection Advanced Directives Existing Living Will: No Existing Power of Director Long Term Care: No VTE Prophylaxis VTE Risk Assessment Done? Y/N: Yes Risk Level: Moderate
[2016-11-03] MEDS ORDERED: HydrALAZINE HCL 20 MG/ML VIAL IV. PRN (19:45)
[2016-11-03] MEDS ORDERED: DEXTROSE 50% 50 ML SYR IV PRN (19:45)
[2016-11-03] MEDS ORDERED: GLUCOSE 40% GEL 15 GM TUBE PO PRN (19:45)
[2016-11-03] MEDS ORDERED: IV FLUIDS COMPLETED PRN (19:45)
[2016-11-03] MEDS ORDERED: GLUCOSE 10 TABS/TUBE PO PRN (19:45)
[2016-11-03] MEDS ORDERED: GLUCAGON FOR INJ 1 MG VIAL SQ PRN (19:45)
[2016-11-03 20:20] VITALS: O2SAT 99
[2016-11-03 20:27] VITALS: BP 167/71; PULSE 55; TEMP 36.6; O2SAT 98
[2016-11-03] MEDS: INSULIN ASPART 100 UNITS/ML 3 ML PEN SC SCH (21:00)
[2016-11-03] MEDS: DORZOLAMIDE HCL 2% OPH SOLN 10 ML BTL OP SCH (21:36)
[2016-11-03] MEDS: HEPARIN SOD 5000 UNIT/0.5 ML CARP SQ SCH (21:42)
[2016-11-03] MEDS ORDERED: CHOL1000 PO (22:52)
[2016-11-03] MEDS ORDERED: MULT-506 PO (22:52)
[2016-11-04] VITALS (7 sets, daily range): BP systolic 97–148; BP diastolic 58–74; PULSE 53–71; TEMP 36.4–37.6; O2SAT 94–100
[2016-11-04] MEDS: SODIUM CHLORIDE 0.9% 1000ML 1,000 ML IV SCH ×2 (05:27→16:37)
[2016-11-04] MEDS: HEPARIN SOD 5000 UNIT/0.5 ML CARP SQ SCH ×2 (05:27→20:28)
[2016-11-04 07:32] LABS: ESTIMATED AVERAGE GLUCOSE 148 mg/dl; HA1C FLAG Normal (Normal)
--- NOTE | 2016-11-04 08:38 | Hospitalist Progress Note ---
Hospitalist Progress Note Date of Service Nov 04, 2016. (Hannah Meneses PA-C) Subjective Patient is extremely hard of hearing she however says she feels much better she is nonambulatory [place] but did walk around the room with PT without any further dizziness she states she's been having increased fatigue and increasing urinary frequency. She says her symptoms that T the emergency room are very similar to her previous admission which was proved to be from an Enterococcal UTI Constitutional: No fever, No chills Respiratory: No cough, No sputum Abdomen: + constipation, No pain, No nausea Female : + urinary frequency, No dysuria, No hematuria (Frank Dan M.D.) Objective Vital Signs Date Time Temp Pulse Resp B/P (MAP) Pulse Ox O2 Delivery O2 Flow Rate FiO2 11/04/16 07:45 37.1 62 16 116/58 (77) 100 Room Air 11/04/16 04:00 Room Air 11/04/16 03:58 36.6 53 19 97/61 (73) 94 Room Air 11/04/16 00:07 37.0 63 17 139/71 (93) 97 Room Air 11/04/16 00:00 Room Air 11/03/16 20:27 36.6 55 17 167/71 (103) 98 Room Air 11/03/16 20:20 59 20 135/67 99 11/03/16 19:28 59 20 158/67 99 Room Air 11/03/16 19:11 Room Air 11/03/16 18:02 11/03/16 18:02 65 18 145/67 96 Room Air 60 93/75 67 174/100 11/03/16 17:57 74 11/03/16 17:00 61 18 133/59 96 Room Air 11/03/16 15:53 57 16 159/69 96 Room Air 11/03/16 14:43 57 16 156/74 97 11/03/16 13:59 97 Room Air 11/03/16 13:56 58 11/03/16 13:54 36.6 54 18 154/74 97 Room Air (Hannah Meneses PA-C) Physical Exam General Appearance: WD/WN, + mild distress Neck: supple, no JVD Respiratory/Chest: chest non-tender, lungs clear, normal breath sounds Cardiovascular: regular rate, rhythm, no murmur Abdomen: normal bowel sounds, non tender, soft Extremities: no pedal edema, no calf tenderness Neurologic/Psychiatric: alert, oriented x 3 (Frank Dan M.D.) Laboratory Results Last 24 Hours Test 11/03/16 14:32 11/03/16 16:24 11/03/16 21:38 11/04/16 05:16 White Blood Count 6.31 K/uL Red Blood Count 4.06 M/uL Hemoglobin 13.3 g/dL Hematocrit 38.2 % Mean Corpuscular Volume 94.1 fL Mean Corpuscular Hemoglobin 32.8 pg Mean Corpuscular Hemoglobin Concent 34.8 g/dl Platelet Count 179 K/uL Mean Platelet Volume 10.4 fL Neutrophils (%) (Auto) 79.9 % Lymphocytes (%) (Auto) 14.4 % Monocytes (%) (Auto) 4.0 % Eosinophils (%) (Auto) 0.8 % Basophils (%) (Auto) 0.6 % Neutrophils # (Auto) 5.04 K/uL Lymphocytes # (Auto) 0.91 K/uL Monocytes # (Auto) 0.25 K/uL Eosinophils # (Auto) 0.05 K/uL Basophils # (Auto) 0.04 K/uL RDW Standard Deviation 43.1 fL RDW Coefficient of Variation 12.6 % Immature Granulocyte % (Auto) 0.3 % Immature Granulocyte # (Auto) 0.02 K/uL Prothrombin Time 11.0 SECONDS Prothromb Time International Ratio 1.0 Sodium Level 138 mmol/L Potassium Level 4.0 mmol/L Chloride Level 103 mmol/L Carbon Dioxide Level 27 mmol/L Anion Gap 8.0 mmol/L Blood Urea Nitrogen 13 mg/dl Creatinine 0.67 mg/dl Estimated GFR () 91.0 Estimated GFR (Non- 78.5 BUN/Creatinine Ratio 19.1 Random Glucose 188 mg/dl Lactic Acid Level 1.4 mmol/L Calcium Level 9.5 mg/dl Magnesium Level 2.0 mg/dl Total Bilirubin 0.8 mg/dl Aspartate Amino Transf (AST/SGOT) 16 U/L Alanine Aminotransferase (ALT/SGPT) 13 U/L Alkaline Phosphatase 59 U/L Troponin I < 0.015 ng/ml Total Protein 6.7 gm/dl Albumin 3.7 gm/dl Globulin 3.0 gm/dl Albumin/Globulin Ratio 1.2 Thyroid Stimulating Hormone (TSH) 1.380 uIu/ml Urine Color YELLOW Urine Appearance CLOUDY Urine pH 8.5 Urine Specific [place] 1.016 Urine Protein NEG Urine Glucose (UA) NEG Urine Ketones 1+ Urine Occult Blood NEG Urine Nitrite NEG Urine Bilirubin NEG Urine Urobilinogen NEG Urine Leukocyte Esterase TRACE Urine WBC (Auto) 1-5 /hpf Urine RBC (Auto) 0-4 /hpf Urine Hyaline Casts (Auto) 0 /lpf Urine Epithelial Cells (Auto) 5-10 /lpf Urine Bacteria (Auto) NEG Bedside Glucose 127 mg/dl Estimated Average Glucose 148 mg/dl Hemoglobin A1c 6.8 % Test 11/04/16 06:36 Bedside Glucose 102 mg/dl (Hannah Meneses PA-C) Assessment and Plan Pt is a 86 yo female who presents to ER with dizziness, weakness that started morning of 11/03 Dizziness/weakness - likely related to orthostatic hypotension which was evident in ER. - Pt reports weakness and dizziness upon standing. - With increased age there is likely autonomic dysfunction. Will hold pts micardis medication and aggressively hydrate. - Will repeat orthostatic vitals as well. - CT head unremarkable and no neuro deficits noted. No infectious source noted as well DM II - Cont metformin and januvia. Glucose stable - ISS with accuchecks ACHS HTN - Hold micardis 20 mg daily at this time Iritis - Cont opthal drops Insomnia - Cont temazepam Hx of colon cancer and resection DVT ppx: teds, scds, heparin subq CODE STATUS: Disposition: (Hannah Meneses PA-C) 86-year-old female here with weakness dizziness and some shakes at home This may be encephalopathy from UTI present on admission the patient did have a low-grade temperature today urine culture was sent she started on oral antibiotics rate initial screening including a CT scan of her head was unremarkable. We'll continue to hydrate her overnight and reevaluate her in the morning if the culture proved to be positive or her symptoms are resolved she may go home on oral antibiotic with further follow-up with an outpatient physician Her diabetes has been stable DVT prevention is early ambulation (Frank Dan M.D.)
[2016-11-04] MEDS: DORZOLAMIDE HCL 2% OPH SOLN 10 ML BTL OP SCH ×2 (09:14→20:29)
[2016-11-04] MEDS: SITAGLIPTIN 100 MG TAB PO SCH (09:14)
[2016-11-04] MEDS: METFORMIN HCL 500 MG TABCR PO SCH (09:15)
[2016-11-04] MEDS: MULTIVITAMIN TAB PO SCH (09:15)
[2016-11-04] MEDS: INSULIN ASPART 100 UNITS/ML 3 ML PEN SC SCH ×4 (09:20→21:15)
[2016-11-04] MEDS: DICLOFENAC SOD 1% GEL 100 GM TUBE EXT SCH ×2 (09:44→20:27)
[2016-11-04] MEDS ORDERED: SENNA 8.6 MG TAB PO ONE (15:30)
[2016-11-04] MEDS: CIPROFLOXACIN 250 MG TAB PO SCH (20:29)
[2016-11-05] MEDS: SODIUM CHLORIDE 0.9% 1000ML 1,000 ML IV SCH (02:09)
[2016-11-05 03:42] VITALS: BP 142/79; PULSE 64; TEMP 36.8; O2SAT 96
[2016-11-05] MEDS: HEPARIN SOD 5000 UNIT/0.5 ML CARP SQ SCH (06:00)
[2016-11-05 08:00] VITALS: BP_SYST 132; BP_SYST 156; BP_SYST 176; BP_DIAS 78; PULSE 67; PULSE 72; PULSE 76; TEMP 36.8; O2SAT 94
[2016-11-05] MEDS: INSULIN ASPART 100 UNITS/ML 3 ML PEN SC SCH (08:03)
[2016-11-05] MEDS: CIPROFLOXACIN 250 MG TAB PO SCH (08:06)
[2016-11-05] MEDS: DORZOLAMIDE HCL 2% OPH SOLN 10 ML BTL OP SCH (08:06)
[2016-11-05] MEDS: MULTIVITAMIN TAB PO SCH (08:07)
[2016-11-05] MEDS: METFORMIN HCL 500 MG TABCR PO SCH (08:07)
[2016-11-05] MEDS: SITAGLIPTIN 100 MG TAB PO SCH (08:07)
--- NOTE | 2016-11-05 08:28 | Hospitalist Progress Note ---
Hospitalist Progress Note Date of Service Nov 05, 2016. Objective Vital Signs Date Time Temp Pulse Resp B/P (MAP) Pulse Ox O2 Delivery O2 Flow Rate FiO2 11/05/16 08:00 36.8 67 16 132/78 (96) 94 Room Air 72 156/78 (104) 76 176/78 (110) 11/05/16 07:39 Room Air 11/05/16 04:00 Room Air 11/05/16 03:42 36.8 64 19 142/79 (100) 96 Room Air 11/05/16 00:00 Room Air 11/04/16 23:17 36.7 60 19 148/67 (94) 96 Room Air 11/04/16 20:00 36.4 71 18 142/60 (87) 96 Room Air 11/04/16 20:00 Room Air 11/04/16 16:00 Room Air 11/04/16 15:15 36.8 54 18 134/74 (94) 99 Room Air 11/04/16 12:09 37.6 59 16 114/69 (84) 96 Room Air Laboratory Results Last 24 Hours Test 11/04/16 11:12 11/05/16 06:33 Bedside Glucose 94 mg/dl 144 mg/dl Assessment and Plan Pt is a 86 yo female who presents to ER with dizziness, weakness that started morning of 11/03 Dizziness/weakness - likely related to orthostatic hypotension which was evident in ER. - encephalopathy from UTI present on admission the patient did have a low-grade temperature today urine culture was sent she started on oral antibiotics rate initial screening including a CT scan of her head was unremarkable. - With increased age there is likely autonomic dysfunction. Will hold pts micardis medication and aggressively hydrate. DM II - Cont metformin and januvia. Glucose stable - ISS with accuchecks ACHS HTN - Hold micardis 20 mg daily at this time Iritis - Cont opthal drops Insomnia - Cont temazepam Hx of colon cancer and resection DVT ppx: teds, scds, heparin subq CODE STATUS: Full code Disposition: From home
[2016-11-05] MEDS ORDERED: SENNA 8.6 MG TAB PO SCH (09:00)
[2016-11-05] MEDS ORDERED: TELMISARTAN 20 MG TAB PO SCH ×2 (09:00)
[2016-11-05 10:35] VITALS: BP 176/78; PULSE 76; TEMP 36.8; O2SAT 94
[2016-11-05] MEDS ORDERED: BISA-16 PO (12:02)
[2016-11-05] MEDS ORDERED: POLY335019 PO (12:02)
[2016-11-05] MEDS ORDERED: CPR250 PO (12:02)
--- NOTE | 2016-11-05 12:08 | Discharge Instructions ---
Discharge Instructions Date of Service Nov 05, 2016. Admission Reason for Admission: Dehydration, Vomiting Discharge Discharge Diagnosis / Problem: Dehydration Discharge Goals Goal(s): Decrease discomfort, Improve function, Increase independence, Improve disease control Activity Recommendations Activity Limitations: resume your previous activity Lifting Limitations: no more than 25 pounds, gradually increase as tolerated Exercise/Sports Limitations: rest today, gradually increase as tolerated Shower/Bathe: no limitations Driving or Machine Use: After clearance from your family doctor . Instructions / Follow-Up Instructions / Follow-Up You were admitted to [facility] with dehydration and diagnosed with same. You were treated for a possible urinary tract infection with intravenous antibiotics during your hospital stay. - You have been given a prescription for oral antibiotics to continue for the next 3 days to complete a total 5 day course. - During your stay here you were treated with intravenous fluids, and your blood pressure medication (telmisartan) was held while here. This was restarted slowly, and you are able to take the full dose at home. Medications: Continue taking Ciprofloxacin 250 mg twice daily for the next 3 days starting tonight. Last dose on 11/08 in the morning. You have been prescribed a stool softener and fiber agent to help your bowels stay regular. Continue taking your other medications as prescribed. Appointments: Follow up with your Primary Care Provider within 1 week. Current Hospital Diet Patient's current hospital diet: Diabetes Type 2 Diet Discharge Diet Recommended Diet: Diabetes Type 2 Diet Pending Studies Studies pending at discharge: yes List of pending studies: Urine culture- follow up with your family doctor for results. Laboratory Results Hemoglobin A1c Test 11/04/16 05:16 Range/Units Estimated Average Glucose 148 mg/dl Hemoglobin A1c 6.8 H 4.5-5.6 % Medical Emergencies . Who to Call and When: Medical Emergencies: If at any time you feel your situation is an emergency, please call 911 immediately. . Non-Emergent Contact Non-Emergency issues call your: Primary Care Provider Call Non-Emergent contact if: you have a fever, temperature is above 100.5, your pain is not controlled, your pain is worsening, your pain is unusual for you, your pain is concerning you, you have any medication questions other concerns with your health. Call 911 or go directly to the Emergency Department if you experience any of the following: Chest pain, chest tightness, shortness of breath, abdominal pain , lightheadedness, dizziness, gastrointestinal bleeding, or have any other concerns regarding your health. . Past History Medical & Surgical History: (1) Dehydration (2) Dizziness . "Provider Documentation" section prepared by Soco Meneses. . VTE Core Measure Inpt VTE Proph given/why not?: Ragini Michaud, SCD's
--- NOTE | 2016-11-05 12:18 | Discharge Summary ---
Discharge Summary Date of Service Nov 05, 2016. (Hannah Meneses PA-C) Discharge Summary Admission Date: Nov 03, 2016 at 19:18 Discharge Date: Nov 05, 2016 Discharge Disposition: Home Principal Diagnosis: Dehydration Problems/Secondary Diagnoses: Dehydration, possible UTI with hx of enterococcus UTI, DM II, HTN, Iritis, insomnia, hx of colon carcinoma s/p resection Procedures: HEAD WITHOUT CONTRAST (CT) CLINICAL HISTORY: 86 years-old Female presenting with dizziness, vomiting. TECHNIQUE: Multidetector CT imaging of the head was performed without the use of intravenous contrast. IV contrast: None. A dose lowering technique was used consistent with the principles of ALARA (as low as reasonably achievable). COMPARISON: 08/02/2016. CT DOSE (mGy.cm): The estimated cumulative dose is 537.48 mGy.cm. FINDINGS: Vocational Director topogram: Unremarkable. Ventricles and sulci normal in size. Periventricular and subcortical white matter hypoattenuation, nonspecific but likely indicative of chronic small vessel ischemic change. No mass effect or midline shift. No hemorrhage or acute territorial infarct. No extra-axial fluid collection. Paranasal sinuses and mastoid air cells clear. Calvarium intact. IMPRESSION: 1. No acute intracranial pathology. Electronically signed by: Archie Rubin M.D. 11/03/2016 2:59 PM Dictated Date/Time: 11/03/2016 2:56 PM The status of this report is Signed. (Hannah Meneses PA-C) Medication Reconciliation New Medications: Bisacodyl (Dulcolax) 5 Mg Tab 2 TAB PO DAILY PRN for Constipation for 30 Days, #60 TAB Polyethylene Glycol 3350 (Miralax) 1 Pow Pow 17 GM PO DAILY PRN for Constipation for 30 Days, #30 DOSE Ciprofloxacin (Ciprofloxacin HCl) 250 Mg Tab 250 MG PO BID for 3 Days, #6 TAB Continued Medications: Acetaminophen (Tylenol) 500 Mg Tab 1 TAB PO Q4 PRN for Headache or Pain for 3 Days, #10 TAB Cholecalciferol (Vitamin D3) 1,000 Unit Tab 1000 INTER.UNIT PO DAILY, TAB 3 Refills Diclofenac Sodium (Topical) (Voltaren 1% Top Gel) 1 % Gel 1 APPLN TOP UD Loperamide Hcl (Imodium) 2 Mg Cap 2 MG PO UD, CAP Metformin Hcl Er (Glucophage Er) 500 Mg Tab 500 MG PO DAILY, TAB Multivitamin (Multivitamin) Tab 1 TAB PO DAILY, TAB Sitagliptin (Januvia) 100 Mg Tab 100 MG PO DAILY, TAB Telmisartan (Micardis) 20 Mg Tab 20 MG PO DAILY Temazepam (Restoril) 15 Mg Cap 15 MG PO HS PRN for Sleep, CAP Tramadol (Ultram) 50 Mg Tab 50 MG PO TID PRN for Pain, TAB Discharge Exam The patient was seen and examined this morning. Pt reports doing very well. She is anticipating discharge home. She had a bowel movement within the past 24 hours after being constipated for several days. She would like a stool softener /fiber vs laxative when she goes home. Discussion was held regarding antibiotics for possible uti and her history of enterococcus as the reason why we have placed her on cipro for 3 more days. She has no other acute complaints. Review of Systems: Constitutional: No fever, No chills, No sweats ENT: No sore throat, No trouble swallowing Respiratory: No shortness of breath, No dyspnea on exertion Cardiovascular: No chest pain, No palpitations Abdomen: No pain, No nausea, No vomiting, No diarrhea, No constipation Musculoskeletal: No joint pain, No swelling Genitourinary - Female: No dysuria, No urinary frequency, No urinary incontinence Neurologic: + problem reported (uses walker for ambulation chronically), No weakness, No numbness/tingling Endocrine: No fatigue Integumentary: No rash, No itch Physical Exam: General Appearance: WD/WN, no apparent distress Eyes: PERRL, EOMI ENT: hearing grossly normal, pharynx normal Neck: supple, no JVD Respiratory/Chest: lungs clear, normal breath sounds, no respiratory distress, no accessory muscle use Cardiovascular: regular rate, rhythm, normal peripheral pulses, + systolic murmur (RUSB grade II/) Abdomen / GI: normal bowel sounds, non tender, soft Extremities: no calf tenderness, no pedal edema Neurologic/Psychiatric: alert, normal mood/affect, oriented x 3 Skin: normal color, warm/dry (Hannah Meneses PA-C) Hospital Course History of Present Illness Source: patient, family (daughter) Pt is an 86 yo female who presents to the ER with complaints of constant dizziness beginning this morning. Pt states that she got up then morning and felt weak and unsteady. Pt denies any falls or vertigo, she states she was just off balance. She has recently been treating her iritis infection with 2 sets of eye drops. She denies any fevers, chills, N/V/D, abd pain or urinary sx. In the ED, pt was noted to have orthostatic hypotension. Physical Exam Vital Signs Date Time Temp Pulse Resp B/P (MAP) Pulse Ox O2 Delivery O2 Flow Rate FiO2 11/03/16 19:11 Room Air 11/03/16 18:02 11/03/16 18:02 65 18 145/67 96 Room Air 60 93/75 67 174/100 11/03/16 17:57 74 11/03/16 17:00 61 18 133/59 96 Room Air 11/03/16 15:53 57 16 159/69 96 Room Air 11/03/16 14:43 57 16 156/74 97 11/03/16 13:59 97 Room Air 11/03/16 13:56 58 11/03/16 13:54 36.6 54 18 154/74 97 Room Air General Appearance: WD/WN, no apparent distress, + thin Head: normocephalic, atraumatic Eyes: normal inspection, PERRL, + pertinent finding (watery eyes) Neck: supple, no adenopathy, thyroid normal Respiratory/Chest: chest non-tender, lungs clear, normal breath sounds, no respiratory distress Cardiovascular: regular rate, rhythm, no gallop, no JVD Abdomen/GI: normal bowel sounds, non tender, no organomegaly Neurologic/Psych: no motor/sensory deficits, alert, normal mood/affect, oriented x 3 Skin: normal color, warm/dry, no rash Lymphatic: no adenopathy Hospital Course: Pt is a 86 yo female who presents to ER with dizziness, weakness that started morning of 11/03 found to be dehydrated and suspected UTI. Urine cultures are in process at time of discharge but patient was given 3 more days antibiotics to complete a 5 day course. Dizziness/weakness - likely related to orthostatic hypotension which was evident in ER. - encephalopathy from UTI present on admission the patient did have a low-grade temperature today urine culture was sent she started on oral antibiotics rate initial screening including a CT scan of her head was unremarkable. - Continue cipro 250 mg BID x 3 more days to complete a 5 day course w hx of enterococcus uti's in the past. - With increased age there is likely autonomic dysfunction.Telmisartan was initally held during admission and and aggressively hydrated. Her BPs improved along with orthostatic results. Her telmisartan was restarted at 10 mg without any cardiac symptoms. Pt can resume 20 mg at time of discharge. DM II - Cont metformin and januvia. Glucose stable - ISS with accuchecks ACHS HTN - Resume micardis 20 mg daily at time of discharge Iritis - Cont opthal drops Insomnia - Cont temazepam Hx of colon cancer and resection DVT ppx: teds, scds, heparin subq CODE STATUS: Full code Disposition: From home, discharge today. Total Time Spent: Greater than 30 minutes This includes examination of the patient, discharge planning, medication reconciliation, and communication with other providers. (Hannah Meneses PA-C) JACINTO Physician Supervision Note: I interviewed and examined the patient. Discussed with Hannah Meneses PAC and agree with findings and plan as documented in the note. Any exceptions or clarifications are listed here: None Patient states she is almost back to her normal station orthostatic hypotension the morning of her discharge she was eating drinking and walking without problems her vital signs were noted to be stable her heart was regular without murmurs her lungs are clear without wheezes or crackles her urine culture was pending at the time of discharge she'll be sent out on a few days of Cipro as this may be encephalopathy from urinary tract infection present on admission the patient will have no other medicines altered follow-up with her family doctor Documented By: Frank Dan (Frank Dan M.D.) Discharge Instructions Please refer to the electronic Patient Visit Report (Discharge Instructions) for additional information. (Hannah Meneses PA-C) Follow-Up Follow up with your Primary Care Provider within 1 week. (Hannah Meneses PA-C) Additional Copies To Archie Chu M.D.
== END 2016-11-05 16:15 | disposition home health service (06) ==
LOC: EDBD 13:45 → C.EDA 13:46 → C.2T 19:18 → ENRESERV 19:31
PROVIDERS: ADMIT Hospitalist; ATTEND Internal Medicine
DX: E86.0 Dehydration (principal); I10 Essential (primary) hypertension; E11.40 Type 2 diabetes mellitus with diabetic neuropathy, unspecified; H20.9 Unspecified iridocyclitis; G47.00 Insomnia, unspecified; G89.29 Other chronic pain; M54.5 Low back pain; Z85.038 Personal history of other malignant neoplasm of large intestine; Z87.440 Personal history of urinary (tract) infections; Z79.84 Long term (current) use of oral hypoglycemic drugs; Z79.899 Other long term (current) drug therapy

== ENCOUNTER → 2016-11-30 | Outpatient (CLI) | payer BC ==
[~2016-11-30] MED LIST changes: +ACET-1256 PO; +BISA-16 PO; +CHOL1000 PO; +CPR250 PO; +DICL1GEL12 TOP; +IMD/2 PO; +MULT-506 PO; +POLY335019 PO; -TELM40TA11 PO; +TELM5TAB2 PO
== END | disposition home or self-care (01) ==
LOC: C.PATHSPEC 10:47
PROVIDERS: ATTEND Nurse Practitioner Adult Health
DX: N28.9 Disorder of kidney and ureter, unspecified (principal)

== ENCOUNTER → 2016-12-14 | Outpatient (CLI) | payer BC ==
[~2016-12-14] MED LIST changes: -BISA-16 PO; +CIPR250T5 PO; -CPR250 PO; +OPTIRAY 320 IV PRN; -POLY335019 PO
--- NOTE | 2016-12-14 14:17 | DIAGNOSTIC IMAGING REPORT ---
ABD/PELVIS COMBO CT DOSE: 936.87 mGycm HISTORY: Hematuria. Renal lesion. N28.9 Renal lesion valid 11/30/16-01/29/17 E X0D E [id number] TECHNIQUE: Multiaxial CT images of the abdomen and pelvis were performed pre and post intravenous contrast enhancement. A dose lowering technique was utilized adhering to the principles of ALARA. COMPARISON STUDY: CT dated 08/02/2016 FINDINGS: Lung bases are clear. Mild fatty infiltration of liver. No significant space-occupying lesion. Prior cholecystectomy. Pancreas appears uniform. Left kidney is considered negative for hydronephrosis. No space-occupying lesion of the left kidney is present. Right kidney shows a multiplicity of cysts throughout the right renal cortex as well as in the right renal perihilar region. The largest of these measures 3.4 cm. There are no abnormal postcontrast enhancement characteristics. Kidneys negative for hydronephrosis. All cyst right kidney are unchanged in size and/or dimension as compared to the prior study. Bowel pattern is considered nonobstructive. There is atherosclerotic change of the abdominal aorta as well as proximal iliac arterial vasculature. Lung bases are clear. IMPRESSION: 1. Multi phase evaluation kidneys demonstrate multiple simple cysts in the right kidney. 2. No evidence for a complex or septated right renal cyst or cystic mass. 3. Normal left kidney. 4. Mild fatty infiltration of liver post cholecystectomy. The above report was generated using voice recognition software. It may contain grammatical, syntax or spelling errors. Electronically signed by: Chan Pizarro M.D. 12/14/2016 2:15 PM Dictated Date/Time: 12/14/2016 2:06 PM
== END | disposition home or self-care (01) ==
LOC: C.CTS 13:26
PROVIDERS: ATTEND Nurse Practitioner Adult Health
DX: N28.1 Cyst of kidney, acquired (principal); K76.0 Fatty (change of) liver, not elsewhere classified; Z90.49 Acquired absence of other specified parts of digestive tract